=== PATIENT | female | born 1975 | race Caucasian/White ===

== ENCOUNTER → 2016-08-20 | Outpatient (CLI) | payer BC ==
[~2016-08-20] MED LIST: CHOLTAB3 PO; ERGO1CAP35 PO; IBUP600T44 PO; MAGN400T6 PO; POTA20TA16 PO; TIMO0.5S2; [UNRECOGNIZED DRUG - OTHER]
--- NOTE | 2016-08-20 17:04 | DIAGNOSTIC IMAGING REPORT ---
KUB CLINICAL HISTORY: NEPHROLITHIASIS COMPARISON STUDY: CT scan dated 05/21/2012 FINDINGS: There is no pathologic bowel dilatation. No urinary tract calculi are visualized on conventional radiographic imaging. There are scattered nonspecific pelvic basin calcifications, likely representing phleboliths. The renal shadows are partially obscured by overlying bowel gas and fecal material. IMPRESSION: No renal calculi identified, however the renal shadows are partially obscured due to overlying bowel gas and fecal material. Electronically signed by: William Deluca M.D. 08/20/2016 5:03 PM Dictated Date/Time: 08/20/2016 5:02 PM
[2016-08-20 17:19] LABS: BASO % 0.6 %; BASO ABS # 0.05 K/uL (0-0.2); COMPLETE YES; EOS % 1.8 %; HEMATOCRIT 44.9 % (37-47); IG% 0.3 %; LYMPH % 27.6 %; LYMPH ABS # 2.14 K/uL (1.2-3.4); MEAN CELL VOLUME 93.2 fL (80-100); MEAN CORPUSCULAR HEMOGLOBIN 30.7 pg (25-34); MEAN PLATELET VOLUME 11.6 fL (7.4-10.4); MONO % 8.3 %; NEUT % 61.4 %; PLATELET COUNT 239 K/uL (130-400); RED BLOOD COUNT 4.82 M/uL (4.2-5.4); WHITE BLOOD COUNT 7.75 K/uL (4.8-10.8)
[2016-08-20 17:54] LABS: ALT/SGPT 26 U/L (12-78); AST/SGOT 15 U/L (15-37); BLOOD UREA NITROGEN 14 mg/dl (7-18); CALCIUM 8.5 mg/dl (8.5-10.1); CARBON DIOXIDE 29 mmol/L (21-32); CHLORIDE 105 mmol/L (98-107); CREATININE 0.72 mg/dl (0.60-1.20); GLUCOSE 76 mg/dl (70-99); POTASSIUM 3.5 mmol/L (3.5-5.1); SODIUM 141 mmol/L (136-145)
[2016-08-20 17:56] LABS: ALB/GLOB RATIO 1.4 (0.9-2); ALKALINE PHOSPHATASE 54 U/L (45-117)
[2016-08-23 18:34] LABS: IGA SERUM 260 mg/dL (81-463); TIS TRANS IGA 1 U/mL (<4)
== END | disposition home or self-care (01) ==
LOC: C.RAD1850 16:33
PROVIDERS: ATTEND Internal Medicine
DX: N20.0 Calculus of kidney (principal); R14.0 Abdominal distension (gaseous)

== ENCOUNTER → 2016-12-17 | Outpatient (CLI) | payer BC ==
--- NOTE | 2016-12-17 15:29 | MAMMOGRAPHY REPORT ---
BILATERAL DIGITAL SCREENING MAMMOGRAM TOMOSYNTHESIS WITH CAD: 12/17/2016 CLINICAL HISTORY: Routine screening. Patient has no complaints. TECHNIQUE: Breast tomosynthesis in addition to standard 2D mammography was performed. Current study was also evaluated with a Computer Aided Detection (CAD) system. COMPARISON: Comparison is made to exams dated: 12/17/2015 mammogram, 12/12/2014 mammogram, 03/02/2009 ultrasound, and 03/02/2009 mammogram - [facility]. BREAST COMPOSITION: The tissue of both breasts is heterogeneously dense, which may obscure small mas ses. FINDINGS: No suspicious masses, calcifications, or areas of architectural distortion are noted in ei ther breast. There has been no significant interval change compared to prior exams. IMPRESSION: ACR BI-RADS CATEGORY 1: NEGATIVE There is no mammographic evidence of malignancy. A 1 year screening mammogram is recommended. The pa tient will receive written notification of the results. Approximately 10% of breast cancers are not detected with mammography. A negative mammographic report should not delay biopsy if a clinically suggestive mass is present. Halima Griffiths M.D. ah/:12/17/2016 07:59:42 Plastics Bench Mechanic: Karrie ROSARIO(R)(M), [facility] letter sent: Normal 1/2 BI-RADS Code: ACR BI-RADS Category 1: Negative
== END | disposition home or self-care (01) ==
LOC: C.MAMM 07:27
PROVIDERS: ATTEND Internal Medicine
DX: Z12.31 Encounter for screening mammogram for malignant neoplasm of breast (principal)

== ENCOUNTER → 2017-07-17 | Outpatient (CLI) | payer OTHER, BC ==
[~2017-07-17] MED LIST changes: +POTA-639 PO; -POTA20TA16 PO
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
== END | disposition home or self-care (01) ==
LOC: C.RAD1850 09:38
PROVIDERS: ATTEND Physician Assistant
DX: M54.2 Cervicalgia (principal)

== ENCOUNTER 2017-10-18 20:41 | Observation (INO) | payer BC, OTHER ==
[~2017-10-18] VITALS: Ht 170.2 cm; Wt 66.5 kg
[2017-10-18] MEDS ORDERED: ASPIRIN 81 MG CHEW PO STA (21:00)
--- NOTE | 2017-10-18 21:20 | EMERGENCY ROOM VISIT NOTE ---
History Report prepared by Justine: Rudy Stout Under the Supervision of: Dr. Chance Tineo M.D. First contact with patient: 20:47 Chief Complaint: CHEST PAIN Stated Complaint: CHEST PAIN History of Present Illness The patient is a 42 year old female who presents to the Emergency Room with complaints of intermittent left-sided chest pain that began 2 days ago. Patient states the pain radiates to the left-side of her back. She describes the pain as "dull". Patient adds she has been having an intermittent "funky" feeling in her left arm below her elbow. Past medical history includes chronic constipation , Raynaud's disease, Gitelman's syndrome, and glaucoma. Past family history includes PE, CAD, and heart disease. Patient adds she traveled back and forth from [place] over the past couple of days but denies any other recent travels. Patient adds she takes a natural progesterone cream for her history of palpitations 2 days prior to her menstrual periods. Patient states the cream was recommended by Dr. Ferguson. Patient states her last menstrual period was last week. Patient denies taking Aspirin. Patient denies nipple discharge and SOB. Patient adds she is allergic to contrast. Patient is present with her partner. Source of History: patient Onset: 2 days ago Position: chest (left), back Quality: dull Timing: intermittent Modifying Factors (Relieving): other (None) Associated Symptoms: No SOB Note: Negative nipple discharge. Review of Systems See HPI for pertinent positives and negatives. A total of ten systems were reviewed and were otherwise negative. Past Medical & Surgical Medical Problems: (1) Constipation (2) Gitelman syndrome (3) Glaucoma (4) Raynaud's disease Family History FH: CAD (coronary artery disease) FHx: pulmonary embolism Heart disease Social History Smoking Status: Never Smoker Alcohol Use: none Drug Use: none Marital Status: single Occupation Status: employed Current/Historical Medications Scheduled Dorzolamide Hcl-Timolol Maleat (Cosopt Pf), 1 DROP OPB BID Fexofenadine-Pseudoephedrine (Janice-D 24 Hour Allergy), 1 TAB PO DAILY Fluticasone Propionate (Nasal) (Flonase Allergy Relief), 2 SPRAYS BOUBACAR DAILY Scheduled PRN Potassium Ext Rel (Klor-Con), 20 MEQ PO UD PRN for Low Level Allergies Coded Allergies: Iodinated Contrast Media (Verified Allergy, Severe, UNKNOWN, 12/26/13) Aspirin (Verified Allergy, Mild, 12/26/13) Sulfa Drugs (Verified Allergy, Mild, 12/26/13) Opioid Analgesics (Verified Adverse Reaction, Unknown, LOW BP, 12/26/13) Physical Exam Vital Signs Date Time Temp Pulse Resp B/P (MAP) Pulse Ox O2 Delivery O2 Flow Rate FiO2 10/18/17 22:37 85 12 141/76 100 Room Air 10/18/17 21:57 96 22 130/73 99 Room Air 10/18/17 21:35 95 10/18/17 21:33 86 21 131/85 100 Room Air 10/18/17 21:14 98 Room Air 10/18/17 20:55 98 Room Air 10/18/17 20:45 36.9 110 18 164/79 100 Room Air Physical Exam Physical Exam GENERAL: She is oriented to person, place, and time. She appears well- developed and well-nourished. She does not appear distressed. HENT: Exam performed. Head: Normocephalic and atraumatic. Right Ear: External ear normal. No mastoid tenderness. Left Ear: External ear normal. No mastoid tenderness. Mouth/Throat: The oropharynx is clear and moist. No trismus in the jaw. No dental abscesses or uvula swelling. No oropharyngeal exudate or tonsillar abscesses. EYES: Conjunctivae and EOM are normal. Pupils are equal, round, and reactive to light. Right eye exhibits no discharge. Left eye exhibits no discharge. No scleral icterus. NECK: Normal range of motion. Neck supple. No JVD present. No spinous process tenderness present. No carotid bruit present. No rigidity. No tracheal deviation and normal range of motion present. No Brudzinski's sign and no Kernig 's sign noted. CV: Normal rate, regular rhythm, normal heart sounds and intact distal pulses. There is no peripheral edema. Palpable radial pulses bue. PULM/CHEST: Effort normal and breath sounds normal. No respiratory distress. No stridor. She has no wheezes. She has no rales. Chest Wall: She exhibits no tenderness. ABD: The abdomen is soft. Bowel sounds are normal. She has no distension. No mass is present. There is no tenderness. There is no rebound, no guarding, no Ronquillo's sign and no tenderness at McBurney's point. Rovsig negative MUSC/SKEL: Normal range of motion. There is no peripheral edema, tenderness or deformity. LYMPH: No cervical adenopathy. NEURO: She is alert and oriented to person, place, and time. She has normal strength. No cranial nerve deficit or sensory deficit. Coordination and gait normal. GCS eye subscore is 4. GCS verbal subscore is 5. GCS motor subscore is 6. Cerebellar tests wnl. SKIN: Skin is warm and dry. She is not diaphoretic. PSYCH: She has a normal mood and affect. Behavior is normal. Judgment and thought content normal. Medical Decision & Procedures ER Provider Diagnostic Interpretation: Radiology results as stated below per my review and radiologist interpretation: CHEST 2 VIEWS ROUTINE CLINICAL HISTORY: cp dyspnea COMPARISON STUDY: 06/05/2015 FINDINGS: The bones soft tissues and hemidiaphragms are normal. The cardiomediastinal silhouette is normal. The lungs are clear. The pulmonary vasculature is normal. IMPRESSION: Negative chest. The above report was generated using voice recognition software. It may contain grammatical, syntax or spelling errors. Electronically signed by: Danial Steinberg M.D. 10/18/2017 9:35 PM Laboratory Results 10/18/17 21:10 Red Blood Count 4.76, Mean Corpuscular Volume 92.9, Mean Corpuscular Hemoglobin 31.3, Mean Corpuscular Hemoglobin Concent 33.7, Mean Platelet Volume 11.6, Neutrophils (%) (Auto) 43.0, Lymphocytes (%) (Auto) 44.5, Monocytes (%) (Auto) 8.5, Eosinophils (%) (Auto) 2.7, Basophils (%) (Auto) 1.0, Neutrophils # (Auto) 2.90, Lymphocytes # (Auto) 3.00, Monocytes # (Auto) 0.57, Eosinophils # (Auto) 0.18, Basophils # (Auto) 0.07 10/18/17 21:10 Test 10/18/17 21:10 White Blood Count 6.74 K/uL (4.8-10.8) Red Blood Count 4.76 M/uL (4.2-5.4) Hemoglobin 14.9 g/dL (12.0-16.0) Hematocrit 44.2 % (37-47) Mean Corpuscular Volume 92.9 fL (80-100) Mean Corpuscular Hemoglobin 31.3 pg (25-34) Mean Corpuscular Hemoglobin Concent 33.7 g/dl (32-36) Platelet Count 200 K/uL (130-400) Mean Platelet Volume 11.6 fL (7.4-10.4) Neutrophils (%) (Auto) 43.0 % Lymphocytes (%) (Auto) 44.5 % Monocytes (%) (Auto) 8.5 % Eosinophils (%) (Auto) 2.7 % Basophils (%) (Auto) 1.0 % Neutrophils # (Auto) 2.90 K/uL (1.4-6.5) Lymphocytes # (Auto) 3.00 K/uL (1.2-3.4) Monocytes # (Auto) 0.57 K/uL (0.11-0.59) Eosinophils # (Auto) 0.18 K/uL (0-0.5) Basophils # (Auto) 0.07 K/uL (0-0.2) RDW Standard Deviation 42.0 fL (36.4-46.3) RDW Coefficient of Variation 12.5 % (11.5-14.5) Immature Granulocyte % (Auto) 0.3 % Immature Granulocyte # (Auto) 0.02 K/uL (0.00-0.02) D-Dimer < 190 ug/L FEU (0-500) Anion Gap 7.0 mmol/L (3-11) Est Creatinine Clear Calc Drug Dose 89.3 ml/min Estimated GFR () 106.3 Estimated GFR (Non- 91.7 BUN/Creatinine Ratio 20.2 (10-20) Calcium Level 9.2 mg/dl (8.5-10.1) Magnesium Level 2.3 mg/dl (1.8-2.4) Total Bilirubin 0.3 mg/dl (0.2-1) Direct Bilirubin 0.1 mg/dl (0-0.2) Aspartate Amino Transf (AST/SGOT) 21 U/L (15-37) Alanine Aminotransferase (ALT/SGPT) 26 U/L (12-78) Alkaline Phosphatase 67 U/L (45-117) Troponin I < 0.015 ng/ml (0-0.045) Total Protein 8.0 gm/dl (6.4-8.2) Albumin 4.2 gm/dl (3.4-5.0) Laboratory results reviewed by me ECG Per My Interpretation Indication: chest pain Rate (beats per minute): 88 Rhythm: sinus rhythm Findings: other (MS, QRS, QTc are within normal limits; No ST segment elevation /depression) ED Course 2048: The patient was evaluated in room B3B. A complete history and physical exam was performed. 2100: Aspirin 324mg PO 2229: I reevaluated the patient. Patients vital signs are stable. Labs are within normal limits including troponin. CXR is within normal limits. Patient was offered either a 3hr rollout troponin vs inpatient admission to rule out ACS. She decided due to her family history of cardiac problems she wants to stay for admission. Patient and her partner are agreeable to the treatment plan. Patient was admitted to Dr. [place]one[place] [facility] The patient will be evaluated for further management. Medical Decision vital signs are stable. Labs are within normal limits including troponin. CXR is within normal limits. Patient was offered either a 3hr rollout troponin vs inpatient admission to rule out ACS. She decided due to her family history of cardiac problems she wants to stay for admission. Patient and her partner are agreeable to the treatment plan. Patient was admitted to Dr. Quinonez of the [facility] The patient will be evaluated for further management. Medication Reconcilliation Current Medication List: was personally reviewed by me Blood Pressure Screening Patient's blood pressure: Elevated blood pressure Blood pressure disposition: Elevated BP felt to be situational Consults Time Called: 2220 Consulting Physician: Dr. Quinonez - [facility] Returned Call: [phone] Discussed the patient's case. The patient will be evaluated for further treatment and disposition. Impression Primary Impression: Chest pain, unspecified Scribe Attestation The scribe's documentation has been prepared under my direction and personally reviewed by me in its entirety. I confirm that the note above accurately reflects all work, treatment, procedures, and medical decision making performed by me. The chart was completed utilizing PostedIn voice recognition software. Grammatical errors, random word insertions, pronoun errors, and incomplete sentences are an occasional consequence of this system due to software limitations, ambient noise, and hardware issues. Any formal questions or concerns about the content, text, or information contained within the body of this dictation should be directly addressed to the physician for clarification. Departure Information Dispostion Being Evaluated By Hospitalist Referrals RV. Nguyen MD (PCP) Forms Call Back Authorization, HOME CARE DOCUMENTATION FORM, IMPORTANT VISIT INFORMATION Patient Instructions [facility] Health Problem Qualifiers Primary Impression: Chest pain, unspecified Chest pain type: unspecified Qualified Codes: R07.9 - Chest pain, unspecified
[2017-10-18 21:21] LABS: BASO ABS # 0.07 K/uL (0-0.2); EOS % 2.7 %; EOS ABS # 0.18 K/uL (0-0.5); HEMATOCRIT 44.2 % (37-47); HEMOGLOBIN 14.9 g/dL (12.0-16.0); IG# 0.02 K/uL (0.00-0.02); LYMPH % 44.5 %; MEAN CELL VOLUME 92.9 fL (80-100); MEAN CORPUSCULAR HEMOGLOBIN 31.3 pg (25-34); MEAN CORPUSCULAR HGB CONC 33.7 g/dl (32-36); MEAN PLATELET VOLUME 11.6 fL (7.4-10.4); MONO % 8.5 %; MONO ABS # 0.57 K/uL (0.11-0.59); PLATELET COUNT 200 K/uL (130-400); RED CELL DISTRIBUTION WIDTH CV 12.5 % (11.5-14.5); WHITE BLOOD COUNT 6.74 K/uL (4.8-10.8)
[2017-10-18] MEDS ORDERED: FLUT0.15 NAE (21:21)
[2017-10-18] MEDS ORDERED: FEXO1TAB58 PO (21:21)
[2017-10-18] MEDS ORDERED: DORZ1SOL5 OPB (21:21)
--- NOTE | 2017-10-18 21:37 | DIAGNOSTIC IMAGING REPORT ---
CHEST 2 VIEWS ROUTINE CLINICAL HISTORY: cp dyspnea COMPARISON STUDY: 06/05/2015 FINDINGS: The bones soft tissues and hemidiaphragms are normal. The cardiomediastinal silhouette is normal. The lungs are clear. The pulmonary vasculature is normal. IMPRESSION: Negative chest. The above report was generated using voice recognition software. It may contain grammatical, syntax or spelling errors. Electronically signed by: Danial Steinberg M.D. 10/18/2017 9:35 PM Dictated Date/Time: 10/18/2017 9:35 PM
[2017-10-18 21:42] LABS: BLOOD UREA NITROGEN 16 mg/dl (7-18); CALCIUM 9.2 mg/dl (8.5-10.1); CARBON DIOXIDE 28 mmol/L (21-32); CREATININE 0.79 mg/dl (0.60-1.20); GLUCOSE 93 mg/dl (70-99); POTASSIUM 3.2 mmol/L (3.5-5.1); SODIUM 139 mmol/L (136-145)
[2017-10-18 23:42] LABS: ALBUMIN 4.2 gm/dl (3.4-5.0); ALKALINE PHOSPHATASE 67 U/L (45-117); ALT/SGPT 26 U/L (12-78); AST/SGOT 21 U/L (15-37)
[2017-10-19] VITALS (7 sets, daily range): BP systolic 76–136; BP diastolic 66–84; PULSE 74–93; TEMP 36.6–36.9; O2SAT 96–99; Ht 170.2 cm; Wt 66.5 kg
[2017-10-19] MEDS ORDERED: POTASSIUM CHLORIDE 10 MEQ TABCR PO STA (00:10)
[2017-10-19] MEDS ORDERED: SPIRONOLACTONE 25 MG TAB PO STA (00:13)
[2017-10-19] MEDS ORDERED: ACETAMINOPHEN 325 MG TAB PO PRN (00:45)
[2017-10-19] MEDS ORDERED: ONDANSETRON 8MG OD TAB PO PRN (00:45)
--- NOTE | 2017-10-19 00:59 | History and Physical ---
History & Physical Date & Time of Service: Oct 19, 2017 at 00:49 Chief Complaint: Chest Pain Primary Care Physician: RV. Nguyen MD History of Present Illness Source: patient, hospital records The patient is a 42-year-old female with the past medical history including Gittleman's syndrome, who presents to emergency department with 4 episodes of self-limited left parasternal chest discomfort approximately 5-10 minutes duration each. To the episodes occurred when she was lying down for sleep, and the other 2 or with activity. She does have a history of hypokalemia intermittently with Gettleman syndrome, and had at one time been getting her blood test on a regular basis, but at this point reports that she takes potassium just if she feels that she needs it. With her episodes of low potassium in the past she primarily has had symptoms of palpitations and PVCs, but this is the first time she has had actual chest discomfort and no PVCs. She also does report some transient left shoulder and upper arm discomfort on 1 of these occasions. Past Medical/Surgical History Medical Problems: (1) Constipation (2) Gitelman syndrome (3) Glaucoma (4) Hypokalemia, excessive renal losses (5) Raynaud's disease Family History FH: CAD (coronary artery disease) FHx: pulmonary embolism Heart disease Social History Smoking Status: Never Smoker Smokeless Tobacco Use: No Alcohol Use: none Drug Use: none Marital Status: single Housing status: lives alone Occupational Status: employed Immunizations History of Influenza Vaccine: Unknown History of Tetanus Vaccine?: Unknown History of Pneumococcal: No History of Hepatitis B Vaccine: Unknown Allergies Coded Allergies: Iodinated Contrast Media (Verified Allergy, Severe, UNKNOWN, 12/26/13) Aspirin (Verified Allergy, Mild, 12/26/13) Sulfa Drugs (Verified Allergy, Mild, 12/26/13) Opioid Analgesics (Verified Adverse Reaction, Unknown, LOW BP, 12/26/13) Home Medications Scheduled Dorzolamide Hcl-Timolol Maleat (Cosopt Pf), 1 DROP OPB BID Fexofenadine-Pseudoephedrine (Janice-D 24 Hour Allergy), 1 TAB PO DAILY Fluticasone Propionate (Nasal) (Flonase Allergy Relief), 2 SPRAYS BOUBACAR DAILY Scheduled PRN Potassium Ext Rel (Klor-Con), 20 MEQ PO UD PRN for Low Level Review of Systems The patient denies palpitations, shortness of breath, dyspnea on exertion, cough , lower extremity swelling, sore throat, fevers, chills, sweats, weight change, fatigue, nausea, vomiting, diarrhea , constipation, abdominal pain, pelvic pain, blood in urine or stool, dysuria, urinary frequency or urgency, lightheadedness , dizziness, headache, memory loss, loss of consciousness, rash, abnormal bruising or bleeding, imbalance, focal or generalized weakness, numbness or tingling in legs, generalized arthralgias or myalgias, back or neck pain, or night sweats. The review of systems is otherwise negative other than for that already noted above, and at least 10 systems have been reviewed. Physical Exam Vital Signs Date Time Temp Pulse Resp B/P (MAP) Pulse Ox O2 Delivery O2 Flow Rate FiO2 10/19/17 00:05 91 22 131/88 100 Room Air 10/18/17 23:00 80 20 116/74 100 Room Air 10/18/17 22:37 85 12 141/76 100 Room Air 10/18/17 21:57 96 22 130/73 99 Room Air 10/18/17 21:35 95 10/18/17 21:33 86 21 131/85 100 Room Air 10/18/17 21:14 98 Room Air 10/18/17 20:55 98 Room Air 10/18/17 20:45 36.9 110 18 164/79 100 Room Air The patient is awake, alert and oriented 3, well developed and well nourished, normocephalic and atraumatic, lying in bed and in no acute distress. HEENT--PERRL, EOMI, mucous membranes and oropharynx dry. Neck--supple. No JVD. No bruits. Thyroid normal, trachea midline, no adenopathy. Heart--normal S1 and S2. No murmurs, rubs or gallops. Lungs--clear bilaterally, no respiratory distress, no accessory muscle use. Abdomen--normal bowel sounds and soft. Nontender. Nondistended, no hernias or masses, no organomegaly. Extremities--no cyanosis or clubbing. No edema. There are good distal pulses b/ l. Dermatologic--normal skin turgor, normal color, no abnormal lymph nodes, no rash. Neurologic--cranial nerves II through XII grossly intact. Rheumatologic--normal range of motion. Psychiatric--normal affect. Diagnostics Laboratory Results Results Past 24 Hours Test 10/18/17 21:10 Range/Units White Blood Count 6.74 4.8-10.8 K/uL Red Blood Count 4.76 4.2-5.4 M/uL Hemoglobin 14.9 12.0-16.0 g/dL Hematocrit 44.2 37-47 % Mean Corpuscular Volume 92.9 80-100 fL Mean Corpuscular Hemoglobin 31.3 25-34 pg Mean Corpuscular Hemoglobin Concent 33.7 32-36 g/dl Platelet Count 200 130-400 K/uL Mean Platelet Volume 11.6 7.4-10.4 fL Neutrophils (%) (Auto) 43.0 % Lymphocytes (%) (Auto) 44.5 % Monocytes (%) (Auto) 8.5 % Eosinophils (%) (Auto) 2.7 % Basophils (%) (Auto) 1.0 % Neutrophils # (Auto) 2.90 1.4-6.5 K/uL Lymphocytes # (Auto) 3.00 1.2-3.4 K/uL Monocytes # (Auto) 0.57 0.11-0.59 K/uL Eosinophils # (Auto) 0.18 0-0.5 K/uL Basophils # (Auto) 0.07 0-0.2 K/uL RDW Standard Deviation 42.0 36.4-46.3 fL RDW Coefficient of Variation 12.5 11.5-14.5 % Immature Granulocyte % (Auto) 0.3 % Immature Granulocyte # (Auto) 0.02 0.00-0.02 K/uL D-Dimer < 190 0-500 ug/L FEU Sodium Level 139 136-145 mmol/L Potassium Level 3.2 3.5-5.1 mmol/L Chloride Level 105 98-107 mmol/L Carbon Dioxide Level 28 21-32 mmol/L Anion Gap 7.0 3-11 mmol/L Blood Urea Nitrogen 16 7-18 mg/dl Creatinine 0.79 0.60-1.20 mg/dl Est Creatinine Clear Calc Drug Dose 89.3 ml/min Estimated GFR () 106.3 Estimated GFR (Non- 91.7 BUN/Creatinine Ratio 20.2 10-20 Random Glucose 93 70-99 mg/dl Calcium Level 9.2 8.5-10.1 mg/dl Magnesium Level 2.3 1.8-2.4 mg/dl Total Bilirubin 0.3 0.2-1 mg/dl Direct Bilirubin 0.1 0-0.2 mg/dl Aspartate Amino Transf (AST/SGOT) 21 15-37 U/L Alanine Aminotransferase (ALT/SGPT) 26 12-78 U/L Alkaline Phosphatase 67 45-117 U/L Troponin I < 0.015 0-0.045 ng/ml Total Protein 8.0 6.4-8.2 gm/dl Albumin 4.2 3.4-5.0 gm/dl Diagnostic Radiology CHEST 2 VIEWS ROUTINE CLINICAL HISTORY: cp dyspnea COMPARISON STUDY: 06/05/2015 FINDINGS: The bones soft tissues and hemidiaphragms are normal. The cardiomediastinal silhouette is normal. The lungs are clear. The pulmonary vasculature is normal. IMPRESSION: Negative chest. The above report was generated using voice recognition software. It may contain grammatical, syntax or spelling errors. Electronically signed by: Danial Steinberg M.D. 10/18/2017 9:35 PM Dictated Date/Time: 10/18/2017 9:35 PM Impression Assessment and Plan Gittelman's syndrome/hypokalemia/left sided chest pain-- The patient will be admitted to telemetry for serial cardiac enzymes, serial EKG's, cardiac rhythm monitoring and a 2-D echocardiogram with Dopplers. Give Klor-Con 40 mEq p.o. now and spironolactone 25 mg p.o. now. Klor-Con 20 mEq p.o. daily, and so the as needed she is taking it now, and spironolactone 25 mg p.o. every morning. Recheck BMP and magnesium laboratories in a.m. Her initial EKG did show nonspecific inferior lateral changes, that was significantly improved on her second EKG. We will consult cardiology. She should be followed closely on an outpatient basis to manage her potassium and magnesium levels to keep potassium at least 4 and magnesium at least 2. Glaucoma-- Continue Cosopt as per outpatient. Allergic rhinitis-- Continue Flonase allergy relief, hold Janice-D 24 hour Advanced Directives Existing Advance Directive: No Existing Living Will: No Existing Power of Director Of Instruction: No Resuscitation Status VTE Prophylaxis Will order VTE Prophylaxis: Yes Social Service Consult None Apply
[2017-10-19] MEDS ORDERED: IV FLUIDS COMPLETED PRN (01:15)
[2017-10-19 06:14] LABS: BLOOD UREA NITROGEN 10 mg/dl (7-18); CALCIUM 8.2 mg/dl (8.5-10.1); CARBON DIOXIDE 24 mmol/L (21-32); CREATININE 0.65 mg/dl (0.60-1.20); GLUCOSE 107 mg/dl (70-99); SODIUM 142 mmol/L (136-145)
[2017-10-19 06:21] LABS: CKMB < 1.0 ng/ml (0.5-3.6)
[2017-10-19] MEDS ORDERED: FLUTICASONE PROPIONATE NA SPR 16 GM BTL NAE SCH (09:00)
[2017-10-19] MEDS ORDERED: POTASSIUM CHLORIDE 20 MEQ TABCR PO SCH (09:00)
[2017-10-19] MEDS ORDERED: SPIRONOLACTONE 25 MG TAB PO SCH (09:00)
[2017-10-19] MEDS ORDERED: DORZOLAMIDE/TIMOLOL 22.3/6.8MG/ML 10 ML BTL OPB SCH (09:00)
--- NOTE | 2017-10-19 12:43 | Cardiology Consultation ---
Cardiology Consultation Date of Consultation: Oct 19, 2017. Requesting Physician: Dr. Monteiro Reason for Consultation: Chest Pain Pt evaluation today including: conversation w/ patient, conversation w/ family (Her partner), physical exam, lab review, review of studies, review of inpatient medication list History of Present Illness This is a very pleasant 42-year-old woman who has a long history of hypokalemia which has been evaluated extensively in the past. This has been associated with palpitations which she tells me or premature ventricular beats in the past. She has never had significant arrhythmias identified. She presents now with several episodes of chest discomfort which is new for her. She describes having severe substernal, left scapular and left shoulder discomfort occurring 4 times, once Thursday evening, 1 Thursday morning, 1 Thursday evening and then on Thursday evening which prompted her to come into the emergency room. The episodes last about an hour and then resolved. They are not exertional. She is quite active and does not have exertional chest discomfort. She does have a strong family history for heart disease. She also has another symptom which has not been fully evaluated, over the last year she has had perhaps half a dozen episodes which occur at night where she suddenly feels her heart beating rapidly, becomes very diaphoretic and her partner says that she turns escamilla and she feels as though she might pass out. During 1 of these episodes her partner (who is the manager medical I believe) took her blood pressure and heart rate and noted her blood pressure to be elevated and her heart rate to be around 110. These episodes resolve after half an hour to an hour. She has not had them during the day and they have not been associated with chest discomfort. Since admission she has felt well, she has had neither chest discomfort nor palpitations. In the emergency room her electrocardiogram was felt to be somewhat abnormal and she was admitted. Cardiac enzymes so far negative. Past Medical/Surgical History (1) Hypokalemia, excessive renal losses (2) Raynaud's disease (3) Glaucoma Family History FH: CAD (coronary artery disease) FHx: pulmonary embolism Heart disease Social History Smoking Status: Never Smoker History of Alcohol Use: No Review of Systems Constitutional: No fever, No weight loss, No weakness Respiratory: No cough, No wheezing, No shortness of breath, No dyspnea on exertion Cardiac: + see HPI, + chest pain, + palpitations, No orthopnea, No PND, No edema Abdomen: No pain, No nausea, No vomiting, No diarrhea, No GI bleeding Female : No problem reported Neurologic: No paralysis, No weakness, No numbness/tingling, No balance problems Heme: No abnormal bleeding/bruising, No clotting problems Endo: No fatigue Skin: No problem reported All Other Systems: Reviewed and Negative Allergies Coded Allergies: Iodinated Contrast Media (Verified Allergy, Severe, UNKNOWN, 12/26/13) Aspirin (Verified Allergy, Mild, 12/26/13) Sulfa Drugs (Verified Allergy, Mild, 12/26/13) Opioid Analgesics (Verified Adverse Reaction, Unknown, LOW BP, 12/26/13) Medications Current Inpatient Medications Medications (Trade) Dose Ordered Sig/Victorina Route Start Time Stop Time Status Last Admin Dose Admin Acetaminophen (Tylenol Tab) 650 mg Q4H PRN PO 10/19/17 00:45 11/18/17 00:44 Fluticasone Propionate (Flonase Nasal [place]) 2 sprays DAILY BOUBACAR 10/19/17 09:00 11/18/17 08:59 10/19/17 08:51 2 SPRAYS Dorzolamide/ Timolol (Cosopt Op Soln) 1 drops BID OPB 10/19/17 09:00 11/18/17 08:59 10/19/17 07:54 1 DROPS Potassium Chloride (Klor-Con Tab) 20 meq QAM PO 10/19/17 09:00 11/18/17 08:59 10/19/17 07:55 20 MEQ Spironolactone (Aldactone Tab) 25 mg QAM PO 10/19/17 09:00 11/18/17 08:59 10/19/17 07:55 25 MG Ondansetron HCl (Zofran Odt) 8 mg Q6H PRN PO 10/19/17 00:45 11/18/17 00:44 Miscellaneous (Iv Fluids Completed) 1 ea PRN PRN N/A 10/19/17 01:15 10/19/18 01:14 Physical Exam Vital Signs Past 12 Hours Date Time Temp Pulse Resp B/P (MAP) Pulse Ox O2 Delivery O2 Flow Rate FiO2 10/19/17 11:51 36.7 76 18 136/75 (95) 98 10/19/17 08:00 99 Room Air 10/19/17 07:35 36.6 74 20 116/70 (85) 99 Room Air 10/19/17 05:16 36.7 80 18 107/66 (80) 96 Room Air 10/19/17 02:19 36.9 93 16 125/84 98 Room Air 10/19/17 01:04 84 18 134/74 100 Constitutional: General Apperance: heathly-appearing Level of Distress: NAD Psychiatric: Mental Status: active & alert Head: normocephalic Eyes: EOM: EOMI ENMT: normal ENT inspection, hearing grossly normal Neck: supple, no masses Lungs: Respiratory effort: no dyspnea, good air movement Auscultation: breath sounds normal, no wheezing Cardiovascular: Heart Auscultation: RRR, no murmurs, no rubs, no gallops Peripheral Pulses: Bruits: none appreciated Abdomen: Bowel Sounds: normal Inspection & Palpation: soft, no tenderness, guarding & rebound, no masses Musculoskeletal: normal strength (5/5 throughout) Extremities: no edema Neurologic: Cranial Nerves: grossly intact Sensation: grossly intact Data Laboratory Results: Last 24 Hours Test 10/18/17 21:10 10/19/17 05:09 White Blood Count 6.74 K/uL Red Blood Count 4.76 M/uL Hemoglobin 14.9 g/dL Hematocrit 44.2 % Mean Corpuscular Volume 92.9 fL Mean Corpuscular Hemoglobin 31.3 pg Mean Corpuscular Hemoglobin Concent 33.7 g/dl Platelet Count 200 K/uL Mean Platelet Volume 11.6 fL Neutrophils (%) (Auto) 43.0 % Lymphocytes (%) (Auto) 44.5 % Monocytes (%) (Auto) 8.5 % Eosinophils (%) (Auto) 2.7 % Basophils (%) (Auto) 1.0 % Neutrophils # (Auto) 2.90 K/uL Lymphocytes # (Auto) 3.00 K/uL Monocytes # (Auto) 0.57 K/uL Eosinophils # (Auto) 0.18 K/uL Basophils # (Auto) 0.07 K/uL RDW Standard Deviation 42.0 fL RDW Coefficient of Variation 12.5 % Immature Granulocyte % (Auto) 0.3 % Immature Granulocyte # (Auto) 0.02 K/uL D-Dimer < 190 ug/L FEU Sodium Level 139 mmol/L 142 mmol/L Potassium Level 3.2 mmol/L 4.0 mmol/L Chloride Level 105 mmol/L 110 mmol/L Carbon Dioxide Level 28 mmol/L 24 mmol/L Anion Gap 7.0 mmol/L 8.0 mmol/L Blood Urea Nitrogen 16 mg/dl 10 mg/dl Creatinine 0.79 mg/dl 0.65 mg/dl Est Creatinine Clear Calc Drug Dose 89.3 ml/min 108.6 ml/min Estimated GFR () 106.3 126.0 Estimated GFR (Non- 91.7 108.7 BUN/Creatinine Ratio 20.2 15.9 Random Glucose 93 mg/dl 107 mg/dl Calcium Level 9.2 mg/dl 8.2 mg/dl Magnesium Level 2.3 mg/dl 2.1 mg/dl Total Bilirubin 0.3 mg/dl Direct Bilirubin 0.1 mg/dl Aspartate Amino Transf (AST/SGOT) 21 U/L Alanine Aminotransferase (ALT/SGPT) 26 U/L Alkaline Phosphatase 67 U/L Troponin I < 0.015 ng/ml < 0.015 ng/ml Total Protein 8.0 gm/dl Albumin 4.2 gm/dl Total Creatine Kinase 69 U/L Creatine Kinase MB < 1.0 ng/ml Creatine Kinase MB Ratio Imaging: I reviewed her echocardiogram, it has not been officially interpreted as yet. It appears to be normal. EKG: Sinus rhythm, intermittent nonspecific ST-T abnormalities. No acute ischemic changes. Telemetry reviewed: Sinus rhythm with sinus arrhythmia, no significant arrhythmia. Assessment & Plan 1. Chest discomfort: Although worrisome there is no evidence that this is cardiac in etiology. She does not have elevated cardiac enzymes (1 still pending), she does not have ischemic electrocardiographic changes and these are not exertional in nature. I suspect it is noncardiac. We discussed stress testing, I am not inclined to do it. In less some abnormality becomes evident suggesting that she does have coronary artery disease (her echo or her last set of enzymes) then her pretest probability is low enough that the test would not be discriminatory and I would prefer not to do it. If she does have a cardiac abnormality identified that would change things. 2. ECG abnormalities: She does have some minor ECG abnormalities, however these are nonspecific and could be due to hypokalemia, anxiety, etc. In and of themselves I would not pursue it further. 3. Palpitations at night: She has quite significant symptoms by her description during these episodes, they have not been recorded. Although they are relatively infrequent I suspect we would be able to record them, even though her heart rate is not terribly high and her blood pressure is high if anything I think based on the severity of her symptoms it would be worth trying to record. I would probably start with a 30 day event monitor which we can arrange at discharge. Whether we should move onto an implantable monitor or not would require further discussion. She is agreeable to the monitor and I will arrange that. Thank you for allowing me to participate in her care.
--- NOTE | 2017-10-19 14:12 | Discharge Summary ---
Discharge Summary Date of Service Oct 19, 2017. Discharge Summary Admission Date: Oct 19, 2017 at 00:40 Discharge Disposition: Home Principal Diagnosis: Non cardiac chest pain Immunizations: Have You Had Influenza Vaccine: Unknown History of Tetanus Vaccine?: Unknown History of Pneumococcal: No History of Hepatitis B Vaccine: Unknown Medication Reconciliation New Medications: Spironolactone (Spironolactone) 25 Mg Tab 25 MG PO QAM for 30 Days, #30 TAB Continued Medications: Dorzolamide Hcl-Timolol Maleat (Cosopt Pf) 1 Lily Lily 1 DROP OPB BID Fexofenadine-Pseudoephedrine (Janice-D 24 Hour Allergy) 1 Tab Tab 1 TAB PO DAILY, TAB Fluticasone Propionate (Nasal) (Flonase Allergy Relief) 50 Mcg/Act Spr 2 SPRAYS BOUBACAR DAILY Potassium Ext Rel (Klor-Con) 20 Meq Tabcr 20 MEQ PO UD PRN for Low Level Discharge Exam Ros: The patient denies palpitations, shortness of breath, dyspnea on exertion, cough , lower extremity swelling, sore throat, fevers, chills, sweats, weight change, fatigue, nausea, vomiting, diarrhea , constipation, abdominal pain, pelvic pain, blood in urine or stool, dysuria, urinary frequency or urgency, lightheadedness , dizziness, headache, memory loss, loss of consciousness, rash, abnormal bruising or bleeding, imbalance, focal or generalized weakness, numbness or tingling in legs, generalized arthralgias or myalgias, back or neck pain, or night sweats. The review of systems is otherwise negative other than for that already noted above, and at least 10 systems have been reviewed. Physical Exam The patient is awake, alert and oriented 3, well developed and well nourished, normocephalic and atraumatic, lying in bed and in no acute distress. HEENT--PERRL, EOMI, mucous membranes and oropharynx dry. Neck--supple. No JVD. No bruits. Thyroid normal, trachea midline, no adenopathy. Heart--normal S1 and S2. No murmurs, rubs or gallops. Lungs--clear bilaterally, no respiratory distress, no accessory muscle use. Abdomen--normal bowel sounds and soft. Nontender. Nondistended, no hernias or masses, no organomegaly. Extremities--no cyanosis or clubbing. No edema. There are good distal pulses b/ l. Dermatologic--normal skin turgor, normal color, no abnormal lymph nodes, no rash. Neurologic--cranial nerves II through XII grossly intact. Rheumatologic--normal range of motion. Psychiatric--normal affect. Hospital Course HPI: The patient is a 42-year-old female with the past medical history including Gittleman's syndrome, who presents to emergency department with 4 episodes of self-limited left parasternal chest discomfort approximately 5-10 minutes duration each. To the episodes occurred when she was lying down for sleep, and the other 2 or with activity. She does have a history of hypokalemia intermittently with Gettleman syndrome, and had at one time been getting her blood test on a regular basis, but at this point reports that she takes potassium just if she feels that she needs it. With her episodes of low potassium in the past she primarily has had symptoms of palpitations and PVCs, but this is the first time she has had actual chest discomfort and no PVCs. She also does report some transient left shoulder and upper arm discomfort on 1 of these occasions. Patient was admitted for observation and she had negative cardiac markers x3. Discussed with Cardio and it was determined that she was a low pretest probability and it wouldn't be beneficial to do a stress test. Echo was normal. Appreciate Cardio input. 1. Chest discomfort: Although worrisome there is no evidence that this is cardiac in etiology. She does not have elevated cardiac enzymes (1 still pending), she does not have ischemic electrocardiographic changes and these are not exertional in nature. I suspect it is noncardiac. We discussed stress testing, I am not inclined to do it. In less some abnormality becomes evident suggesting that she does have coronary artery disease (her echo or her last set of enzymes) then her pretest probability is low enough that the test would not be discriminatory and I would prefer not to do it. 2. ECG abnormalities: She does have some minor ECG abnormalities, however these are nonspecific and could be due to hypokalemia, anxiety, etc. In and of themselves I would not pursue it further. 3. Palpitations at night: She has quite significant symptoms by her description during these episodes, they have not been recorded. Although they are relatively infrequent I suspect we would be able to record them, even though her heart rate is not terribly high and her blood pressure is high if anything I think based on the severity of her symptoms it would be worth trying to record. I would probably start with a 30 day event monitor which we can arrange at discharge. Whether we should move onto an implantable monitor or not would require further discussion. She is agreeable to the monitor and I will arrange that. 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 Total Time Spent: Greater than 30 minutes This includes examination of the patient, discharge planning, medication reconciliation, and communication with other providers. Discharge Instructions Please refer to the electronic Patient Visit Report (Discharge Instructions) for additional information. Follow-Up F/U with PCP and Cardio within the month. Additional Copies To RV. Nguyen MD
[2017-10-19] MEDS ORDERED: SPIR25TA6 PO (14:25)
--- NOTE | 2017-10-19 14:28 | Discharge Instructions ---
Discharge Instructions Date of Service Oct 19, 2017. Admission Reason for Admission: Chest Pain, Unspecified, Hypokalemia, Excessive Discharge Discharge Diagnosis / Problem: Chest pain/ hypokalemia Discharge Goals Goal(s): Decrease discomfort, Improve function Activity Recommendations Activity Limitations: resume your previous activity . Instructions / Follow-Up Instructions / Follow-Up Recommend followup with PCP in 1-2 weeks Will start spironolactone to help decrease low potassium. Will followup with cardiology as an outpatient and they will set up a 30 day heart monitor to check for palpitations. Current Hospital Diet Patient's current hospital diet: AHA Diet (Heart Healthy) Discharge Diet Recommended Diet: AHA Diet (Heart Healthy) Pending Studies Studies pending at discharge: no Medical Emergencies . Who to Call and When: Medical Emergencies: If at any time you feel your situation is an emergency, please call 911 immediately. . Non-Emergent Contact Non-Emergency issues call your: Primary Care Provider Call Non-Emergent contact if: you have any medication questions . . "Provider Documentation" section prepared by Konstantin Ramos. .
--- NOTE | 2017-10-20 15:28 | ECHOCARDIOGRAM REPORT ---
*NOTICE TO RECEIVING DEMOCRAT AGENCY This information is strictly Confidential and protected under [place] law. [place] law prohibits you from making any further disclosure of this information unless further disclosure is expressly permitted by the written consent of the person to whom it pertains or is authorized by law. A general authorization for the release of medical or other information is not sufficient for this purpose. Hospital accepts no responsibility if the information is made available to any other person, INCLUDING THE PATIENT. Interpretation Summary * Name: TJ FOURNIER Study Date: 10/19/2017 06:48 AM BP: 107/66 mmHg * Patient Location: [facility]\S\[id number]\2 HR: 80 * : 1975 (M/d/yyyy) Gender: Female Height: 67 in * Age: 42 yrs Ethnicity: CA Weight: 149 lb * Ordering Physician: Chris Qunionez * Performed By: Anna Herman RDCS * * Reason For Study: CHEST PAIN * BSA: 1.8 m2 * -- Conclusions -- * 1. Normal LV size and wall thickness. * 2. LVEF 65-70%. No regional wall motion abnormalities. * 3. Normal RV size and function. * 4. No significant valvular pathology. * 5. No prior studies for comparison. Procedure Details * A complete two-dimensional transthoracic echocardiogram was performed (2D, M-mode, Doppler and color flow Doppler). Left Ventricle * The left ventricle is grossly normal size. * There is normal left ventricular wall thickness. * Ejection Fraction = 65-70%. * No regional wall motion abnormalities noted. Right Ventricle * The right ventricle is grossly normal size. * The right ventricular systolic function is normal as assessed by tricuspid annular plane systolic excursion (TAPSE) (normal >1.5 cm). Atria * The left atrial size is normal. * Borderline right atrial enlargement. * No ASD detected; PFO is not assessed. Mitral Valve * The mitral valve is grossly normal. * There is no mitral valve stenosis. * Significant mitral regurgitation is absent. Tricuspid Valve * The tricuspid valve is not well visualized, but is grossly normal. * Significant tricuspid regurgitation is absent. Aortic Valve * The aortic valve opens well. * The aortic valve is trileaflet. * No hemodynamically significant valvular aortic stenosis. * There is no significant aortic regurgitation. Pulmonic Valve * The pulmonary valve is not well seen, but the Doppler examination is normal without significant regurgitation or stenosis. * Pulmonic stenosis is absent. * There is no significant pulmonary regurgitation. Great Vessels * The aortic root and proximal ascending aorta are normal sized. Pericardium/Pleural * There is no pericardial effusion. Great Vessels * Normal inferior vena cava size and collapsability with sniff indicates a normal right atrial pressure of 3 mmHg MMode 2D Measurements and Calculations IVSd 1.0 cm IVSs 1.2 cm LVIDd 4.5 cm LVIDs 2.7 cm LVPWd 0.63 cm LVPWs 1.3 cm IVS/LVPW 1.6 FS 40.4 % EDV(Teich) 90.1 ml ESV(Teich) 25.9 ml EF(Teich) 71.3 % EDV(cubed) 88.2 ml ESV(cubed) 18.7 ml EF(cubed) 78.8 % % IVS thick 22.5 % % LVPW thick 114.8 % LV mass(C)d 115.5 grams LV mass(C)dI 64.7 grams/m\S\2 LV mass(C)s 105.0 grams LV mass(C)sI 58.9 grams/m\S\2 CO(Teich) 4.3 l/min CI(Teich) 2.4 l/min/m\S\2 SV(Teich) 64.2 ml SI(Teich) 36.0 ml/m\S\2 CO(cubed) 4.7 l/min CI(cubed) 2.6 l/min/m\S\2 SV(cubed) 69.5 ml SI(cubed) 38.9 ml/m\S\2 LA dimension 3.0 cm asc Aorta Diam 2.5 cm LVOT diam 1.6 cm LVOT area 2.0 cm\S\2 LVAd ap4 21.2 cm\S\2 LVLd ap4 6.8 cm EDV(MOD-sp4) 53.8 ml LVAs ap4 9.7 cm\S\2 LVLs ap4 5.3 cm ESV(MOD-sp4) 14.2 ml EF(MOD-sp4) 73.6 % LVAd ap2 24.2 cm\S\2 LVLd ap2 7.8 cm EDV(MOD-sp2) 63.0 ml LVAs ap2 9.5 cm\S\2 LVLs ap2 5.1 cm ESV(MOD-sp2) 14.9 ml EF(MOD-sp2) 76.3 % CO(MOD-sp4) 2.7 l/min CI(MOD-sp4) 1.5 l/min/m\S\2 SV(MOD-sp4) 39.6 ml SI(MOD-sp4) 22.2 ml/m\S\2 CO(MOD-sp2) 3.2 l/min CI(MOD-sp2) 1.8 l/min/m\S\2 SV(MOD-sp2) 48.1 ml SI(MOD-sp2) 27.0 ml/m\S\2 Doppler Measurements and Calculations MV E max jim 86.3 cm/sec MV A max jim 49.0 cm/sec MV E/A 1.8 MV dec time 0.26 sec Ao V2 max 183.2 cm/sec Ao max PG 13.4 mmHg Ao max PG (full) 10.0 mmHg SABINA(V,A) 0.98 cm\S\2 SABINA(V,D) 0.98 cm\S\2 LV V1 max PG 3.4 mmHg LV V1 max 92.2 cm/sec PA V2 max 100.4 cm/sec PA max PG 4.0 mmHg
== END 2017-10-19 16:07 | disposition home or self-care (01) ==
LOC: C.EDB 21:08 → C.MED 10-19 00:40 → ENRESERV 10-19 00:51
PROVIDERS: ADMIT Hospitalist; ATTEND Hospitalist
DX: R07.89 Other chest pain (principal); I73.00 Raynaud's syndrome without gangrene; H40.9 Unspecified glaucoma; Z82.49 Family history of ischemic heart disease and other diseases of the circulatory system; Z91.041 Radiographic dye allergy status; Z88.6 Allergy status to analgesic agent; Z88.2 Allergy status to sulfonamides; Z88.5 Allergy status to narcotic agent

== ENCOUNTER → 2017-10-21 | Outpatient (CLI) | payer BC ==
[~2017-10-21] MED LIST changes: -CHOLTAB3 PO; +DORZ1SOL5 OPB; -ERGO1CAP35 PO; +FEXO1TAB58 PO; +FLUT0.15 NAE; -IBUP600T44 PO; -MAGN400T6 PO; +SPIR25TA6 PO; -TIMO0.5S2; -[UNRECOGNIZED DRUG - OTHER]
[2017-10-21 09:49] LABS: ALKALINE PHOSPHATASE 59 U/L (45-117); ALT/SGPT 23 U/L (12-78); AST/SGOT 18 U/L (15-37); BLOOD UREA NITROGEN 12 mg/dl (7-18); CALCIUM 8.8 mg/dl (8.5-10.1); CARBON DIOXIDE 29 mmol/L (21-32); CHOLESTEROL 211 mg/dl (0-200); CREATININE 0.87 mg/dl (0.60-1.20); GLUCOSE 93 mg/dl (70-99); LDL CHOLESTEROL CALCULATED 113 mg/dl; POTASSIUM 3.9 mmol/L (3.5-5.1); SODIUM 140 mmol/L (136-145); TOTAL PROTEIN 7.4 gm/dl (6.4-8.2)
== END | disposition home or self-care (01) ==
LOC: C.LAB1850 08:07
PROVIDERS: ATTEND Internal Medicine
DX: E87.6 Hypokalemia (principal); E55.9 Vitamin D deficiency, unspecified; Z13.220 Encounter for screening for lipoid disorders

== ENCOUNTER → 2017-11-09 | Outpatient (CLI) | payer BC ==
[2017-11-09 18:32] LABS: BLOOD UREA NITROGEN 9 mg/dl (7-18); CALCIUM 8.6 mg/dl (8.5-10.1); CARBON DIOXIDE 28 mmol/L (21-32); CREATININE 0.81 mg/dl (0.60-1.20); GLUCOSE 111 mg/dl (70-99); POTASSIUM 3.6 mmol/L (3.5-5.1); SODIUM 138 mmol/L (136-145)
== END | disposition home or self-care (01) ==
LOC: C.LAB1850 16:26
PROVIDERS: ATTEND Internal Medicine
DX: E87.6 Hypokalemia (principal)

== ENCOUNTER 2024-12-30 11:02 | Observation (INO) ==
--- NOTE | 2024-12-30 11:26 | Emergency Department Note ---
History of Present Illness General Chief complaint: Cardiac Assessment Stated complaint: CHEST TIGHTNESS, SOB Time Seen by Provider: 12/30/24 11:09 History of Present Illness Maximum Pain Intensity: 4 This is a 49-year-old female who presents to the emergency department via private vehicle with complaints of "chest tightness, shortness of breath". The patient notes that she received her Shingrix vaccine this past Thursday. She then felt quite ill later in the day noting racing heart and diffuse body aches. This has essentially persisted but now notes chest pain and today shortness of breath. She notes also some back pain. There is no tearing pain. No pain shooting through the chest into the back. She did note fever on the first day following the vaccine but none since. She notes the breathing is worsening therefore prompting arrival here today. Current discomfort 06/30. No personal history of UT or PE. She does note family history of PE with her father and also now her sister. There is concern for possible underlying clotting disorder in the family. 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 Home Medications Medication Instructions Recorded Confirmed Type dorzolamide-timolol (PF) 2 %-0.5 % 1 drp OPB BID 04/18/18 12/30/24 History eye drops in a dropperette cholecalciferol (vitamin D3) 50 50 mcg PO QAM 11/11/23 12/30/24 History mcg (2,000 unit) capsule fluticasone propionate 50 1 - 2 spray intranasal UD PRN 05/24/24 12/30/24 Rx mcg/actuation nasal Allergy Symptoms #15.8 mL spray,suspension (Allergy Relief (fluticasone)) albuterol sulfate 90 mcg/actuation 2 puff inhalation .COMPLEX PRN 11/02/24 12/30/24 Rx aerosol inhaler shortness of breath or wheezing #8.5 grams potassium chloride 10 mEq 20 meq (2 x 10 mEq) PO TID #180 11/21/24 12/30/24 Rx tablet,extended release (Klor-Con) tabs spironolactone 25 mg tablet 25 mg PO QDL #90 tabs 11/21/24 12/30/24 Rx famotidine 40 mg tablet 40 mg PO DAILY PRN GERD #30 tabs 12/12/24 12/30/24 Rx montelukast 10 mg tablet 10 mg PO QAM #90 tabs 12/19/24 12/30/24 Rx epinephrine 0.3 mg/0.3 mL 0.3 mg (0.3 mL) IM ONCE PRN 12/21/24 12/30/24 Rx injection, auto-injector (EpiPen anaphylaxis #2 ea 2-Garrick) triamcinolone acetonide 0.1 % 1 applic topical BID PRN flare up 12/30/24 12/30/24 History topical cream Allergies Allergy/AdvReac Type Severity Reaction Status Date / Time Iodinated Contrast Media Allergy Severe Anaphylaxis Verified 12/30/24 13:44 shellfish derived Allergy Severe Anaphylaxis Verified 12/30/24 13:44 Sulfa (Sulfonamide Allergy Unknown Gastrointestinal Verified 12/30/24 13:44 Antibiotics) Upset Past Med/Surg History Problem List (Updated 12/30/24 @ 23:01 by Artis Fitzgerald PA-C) Dyspnea (Acute) Chest pain (Acute) RLQ abdominal pain Gitelman syndrome (Acute) Encounter for health maintenance examination Witnessed episode of apnea FH: osteoporosis Upper back pain Neck pain Pineal gland cyst Hypokalemia (Acute) Irregular menstrual cycle Food allergy Allergic rhinitis Allergic reaction to bee sting GERD (gastroesophageal reflux disease) History of kidney surgery Family history of colon cancer Hypoglycemia Osteopenia Medical History Change in bowel habits Tailbone injury Premenopausal menorrhagia Breast pain, left History of vitamin D deficiency Hx of renal calculi Frontal sinus pain Colicky RLQ abdominal pain Acid reflux History of anesthesia reaction pt denies hx anesthesia problem, pt reports with past colonoscopy (with Dr. Chong) - before procedure started her blood pressure crashed, had to do IV Potassium. no problems with the more recent colonoscopies. Family history of reaction to anesthesia MOM, N/V - SLOW TO WAKE UP History of colon polyps Hypokalemia hx Glaucoma Raynaud's disease Constipation chronic Surgical History History of surgery dental implant History of colonoscopy History of esophagogastroduodenoscopy (EGD) History of tooth extraction History of foot surgery benign lesion removed from left foot Hx of eye surgery Had SLT x2 for glaucoma History of ureter stent History of D&C History of ovarian cystectomy Family History Father Diabetes Aortic stenosis Atrial fibrillation CAD (coronary artery disease), squaxin coronary artery Pulmonary embolism Glaucoma Hypertension Mother Carotid artery stenosis Aortic stenosis CAD (coronary artery disease), squaxin coronary artery Stroke Family history of reaction to anesthesia Family hx colonic polyps Sister Glaucoma Hypertension Family hx colonic polyps Brother Hypertension Family hx colonic polyps Grandfather (Maternal) Family hx of colon cancer Colorectal cancer Grandfather (Paternal) Family hx of colon cancer Colorectal cancer Grandmother (Paternal) Family hx of colon cancer Colorectal cancer Grandmother (Maternal) Family hx of colon cancer Colorectal cancer Uncle Family hx of colon cancer Aunt Breast cancer Family/Other Breast cancer Family/Other Colorectal cancer Other Renal cancer Denies family history of Ovarian cancer Prostate cancer Myocardial infarction Uterine cancer Social History Smoking Status: Former smoker Tobacco Type: Cigarettes Age Started Using Tobacco: 19; Age Quit Using Tobacco: 34; packs per day: 0.5; Second Hand Exposure: No; Do You Dip or Chew Tobacco: No; Hx Alcohol Use: Yes Alcohol type: wine Hx Substance Use: No Preferred Language: Zambian Communication Ability: Effective Visual Impairment: No Limitations Hearing Ability: Normal Pit Slagman Required: No Beliefs That Will Affect Care: None marital status: Single Current Living Situation: Other Current Living Situation Comment: lives with friend current occupational status: employed current occupation: Works for the [employer] Other Information That Helps Us Care for You: No Feels Safe at Home: Yes Safety Concerns: Feels Safe At This Time Childhood Exposure to Second-Hand Smoke: No Dental Care, Regularly: Yes Seatbelt Use: always Sunscreen Use: Yes Assistive Devices: Contacts and Glasses Review of Systems A total of 10 systems reviewed and were otherwise negative Physical Exam Vital Signs Vital Signs - 24 hr 12/30/24 11:04 12/30/24 11:28 12/30/24 13:48 Temperature 36.8 C Temperature Source Temporal Artery Scan Pulse Rate 93 H Pulse Rate [Right Finger] 82 Respiratory Rate 20 16 Respiratory Effort / Characteristics Non-Labored Spontaneous Short of Breath Non-Labored Respiratory Depth Normal Normal Normal Respiratory Pattern Regular Blood Pressure 145/93 H Blood Pressure [Right Arm] 124/77 Blood Pressure Mean 110 Blood Pressure Mean [Right Arm] 92 Blood Pressure Position Lying Pulse Oximetry 100 98 Oxygen Delivery Method Room Air Room Air Sepsis Recent Fever Within 48 Hours No Sepsis New/Unexplained Change in Mental Status No Sepsis Action Taken by Nursing No Action Required 12/30/24 13:48 Temperature Temperature Source Pulse Rate Pulse Rate [Right Finger] Respiratory Rate Respiratory Effort / Characteristics Respiratory Depth Respiratory Pattern Blood Pressure Blood Pressure [Right Arm] Blood Pressure Mean Blood Pressure Mean [Right Arm] Blood Pressure Position Pulse Oximetry Oxygen Delivery Method Room Air Sepsis Recent Fever Within 48 Hours Sepsis New/Unexplained Change in Mental Status Sepsis Action Taken by Nursing VITAL SIGNS - Vital signs and nursing notes were reviewed. Stable and afebrile. GENERAL -49-year-old female appearing her stated age who is in no acute distress. Communicates well with provider and answers questions appropriately. SKIN - Without rashes. No meningeal or petechial rash. HEAD - NC/AT. EYES - PERRL with EOMI bilaterally. Sclera anicteric. EARS - No deformities of external structures noted on gross examination bilaterally. NOSE - Midline and without cyanosis. No epistaxis or purulent drainage noted. MOUTH/OROPHARYNX - Without perioral cyanosis. NECK - Neck with FROM. No nuchal rigidity. LUNGS - CTA CARDIAC - RRR ABDOMEN - Abdominal contour normal without pulsations or visible masses. BS normoactive all four quadrants. No tenderness, palpable masses, hepatosplenomegaly, or ascites noted. EXTREMITIES - No clubbing or peripheral cyanosis. +5/5 strength noted in UE/LE bilaterally. NEUROLOGIC - Cranial nerves II through XII grossly intact. PSYCH -alert, oriented and pleasant on exam. Course Administered Medications Acetaminophen (Acetaminophen 325 Mg Tab) 650 mg PO Q4H PRN PRN Reason: Pain or Fever Stop: 01/29/25 14:06 Last Admin: 12/30/24 20:50 Dose: 650 mg Documented By: MG Dorzolamide/Timolol (Dorzolamide/Timolol 22.3/6.8mg/Ml 10 Ml Btl) 1 drops OPB BID SERINA Stop: 01/29/25 20:59 Last Admin: 12/30/24 19:32 Dose: 1 drops Documented By: Admin: 12/30/24 19:31 Dose: 1 drops Documented By: MG Discontinued Medications Potassium Chloride (K King / Wtr) 10 meq in 100 mls @ 100 mls/hr IV ONE ONE Stop: 12/30/24 13:38 Last Infusion: 12/30/24 14:27 Dose: Infused Documented By: Admin: 12/30/24 12:55 Dose: 100 mls/hr Documented By: DEEPTI Potassium Chloride (Potassium Chloride Crtab 20 Meq Tabcr) 20 meq PO NOW STA Stop: 12/30/24 12:40 Last Admin: 12/30/24 13:00 Dose: 10 meq Documented By: DEEPTI Potassium Chloride (Potassium Chloride 10 Meq Tabcr) Confirm Administered Dose 10 meq PO .STK-MED ONE Stop: 12/30/24 12:59 Last Admin: 12/30/24 13:03 Dose: Not Given Documented By: DEEPTI Potassium Chloride (Potassium Chloride Crtab 20 Meq Tabcr) 20 meq PO NOW STA Stop: 12/30/24 14:12 Last Admin: 12/30/24 14:37 Dose: 20 meq Documented By: MMG Potassium Chloride (Potassium Chloride Crtab 20 Meq Tabcr) 20 meq PO 1800 ONE Stop: 12/30/24 18:01 Last Admin: 12/30/24 17:45 Dose: 20 meq Documented By: AAKASH Medical Decision Making Laboratory Data 12/30/24 11:37 12/30/24 19:44 Lab Results 12/30/24 Range/Units 11:37 WBC 7.40 (4.8-10.8) K/ul RBC 5.03 (4.20-5.40) M/uL Hgb 15.4 (12.0-16.0) g/dl Hct 47.1 H (37.0-47.0) % MCV 93.6 (80.0-100.0) fL MCH 30.6 (25.0-34.0) pg MCHC 32.7 (32.0-36.0) g/dL RDW Std Deviation 43.0 (36.4-46.3) fL RDW Coeff of Fareed 12.4 (11.5-14.5) % Plt Count 224 (130-400) K/uL MPV 11.3 (9.4-12.4) fL Immature Gran % (Auto) 0.1 % Neut % (Auto) 60.9 % Lymph % (Auto) 25.4 % Wise % (Auto) 10.4 % Eos % (Auto) 2.3 % Baso % (Auto) 0.9 % Neut # (Auto) 4.50 (1.40-6.50) K/uL Lymph # (Auto) 1.88 (1.20-3.40) K/uL Wise # (Auto) 0.77 H (0.11-0.59) K/uL Eos # (Auto) 0.17 (0.00-0.50) K/uL Baso # (Auto) 0.07 (0.00-0.20) K/uL Immature Gran # (Auto) 0.01 (0.01-0.20) K/uL PT 10.5 (9.0-12.0) Seconds INR 1.0 (0.9-1.1) APTT 30 (21-31) Seconds PTT Ratio 1.1 D-Dimer < 190 (0-500) ug/L FEU Sodium 139 (136-145) mmol/L Potassium 3.4 L (3.5-5.1) mmol/L Chloride 103 (98-107) mmol/L Carbon Dioxide 29 (21-32) mmol/L Anion Gap 7 (3-11) BUN 9 (6-23) mg/dl Creatinine 0.63 (0.6-1.2) mg/dl Est Cr Clr Drug Dosing 103.9 ml/min eGFR 108.01 BUN/Creatinine Ratio 14.3 (10-20) Glucose 97 (70-99(Fasting)) mg/dl Calcium 9.3 (8.6-10.3) mg/dl Magnesium 2.2 (1.7-2.4) mg/dl Total Bilirubin 0.5 (0.2-1.0) mg/dl AST 19 (13-39) U/L ALT 13 (7-52) U/L Alkaline Phosphatase 59 (34-104) U/L Troponin I High Sens 3.8 (0-14) pg/ml Total Protein 7.7 (6.0-8.3) gm/dl Albumin 4.3 (3.4-5.0) gm/dl Globulin 3.4 (2.5-4.0) gm/dl Albumin/Globulin Ratio 1.3 (0.9-2) TSH 1.667 (0.300-4.500) uIu/ml HCG, Qual Negative (Negative) Urine Color Yellow Urine Appearance Clear (Clear) Urine pH 6.5 (4.5-7.5) Ur Specific [place] 1.009 (1.000-1.030) Urine Protein Negative (Negative) Urine Glucose (UA) Negative (Negative) Urine Ketones Negative (Negative) Urine Blood 3+ H (Negative) Urine Nitrite Negative (Negative) Urine Bilirubin Negative (Negative) Urine Urobilinogen Negative (Negative) Ur Leukocyte Esterase Negative (Negative) Urine WBC (Auto) 0-5 (0-5) /hpf Urine RBC (Auto) >20 H (0-2) /hpf U Hyaline Cast (Auto) 0-2 (0-2) /lpf U Epithel Cells (Auto) 0-2 (0-2) /hpf Urine Bacteria (Auto) None Seen (None Seen) Urine Comment Lyme Disease Screen Negative (Negative) Imaging Data Radiologist's Impression: Chest X-Ray 12/30/24 11:22 XR chest 2V PA/lateral CLINICAL HISTORY: chest pain, dyspnea COMPARISON STUDY: 05/25/2019 FINDINGS: Heart size and pulmonary vasculature are normal. Stable hyperexpanded lungs. No consolidation or pleural effusion. No pneumothorax. IMPRESSION: No acute findings. ACT 112: Negative or not required by law. Electronically signed by: Jim Whitten M.D. 12/30/2024 12:06 PM MDM Narrative Patient was seen and evaluated as above in room D06. Review was performed of nursing notes and vital signs. I did review pertinent previous visits and patient history. After obtaining a thorough history and physical examination the above work up was performed. Patient presents to us today for the above symptoms. She has chest pain or shortness of breath. This began following the Shingrix vaccine this past Thursday. Vital signs are stable. She is clinically well-appearing and nontoxic. EKG per my interpretation reveals normal sinus rhythm at rate of 84 bpm. QTc 423. QRS 88. No ST elevation on this rhythm tracing. Options of care were discussed with the patient. IV access was established. Labs were drawn. Utilizing the PERC rule for pulmonary embolism, the patient unfortunately does not fit criteria as she is at the age of 49 therefore PERC rule cannot be used to rule out PE in this patient. A D-dimer was added. This returned negative and within normal range making PE less likely. No emergent metabolic disturbance. Troponin within normal range. TSH was euthyroid state. hCG negative. Urinalysis without findings to suggest UTI. Lyme screen negative. Chest x-ray negative for acute process. Will note hypokalemia with potassium of 3.4. Patient does note that this is extremely low for her and often is admitted at a level similar to this. She notes that she was in the ICU previously with a potassium of 3.2. She notes that generally the goal is potassium above 4/4.5. She already had 20 mEq of potassium chloride today. I did order additional supplementation here. I discussed further options with the patient. At this time noting the patient's history of Gitelman syndrome with suspected symptomatic hypokalemia today, with the chest pain and dyspnea I do believe that further evaluation and management in the inpatient setting is warranted. Patient in agreement with this plan. Case discussed with the hospitalist service. Please refer to further documentation regarding her stay. GCS: 15 In the evaluation and treatment of this patient the following differential diagnoses were entertained: UT, PE, pericarditis, costochondritis, electrolyte disturbance, vaccine reaction, among others Impression & Plan Hypokalemia, Gitelman syndrome, Chest pain, Dyspnea Discharge Plan Visit Data Chief Complaint: Cardiac Assessment Stated Complaint: CHEST TIGHTNESS, SOB ED Provider: Luz Elliott ED Midlevel Provider: Artis Fitzgerald Discharge Problem: Hypokalemia, Gitelman syndrome, Chest pain, Dyspnea Patient Disposition: Admitted As Inpatient Condition: Good Discharge Instructions Interventions: ED Discharge Assessment Last Done: 12/30/24 15:49
[2024-12-30 11:51] LABS: Hematocrit (blood only) 47.1 % (37.0-47.0); Hemoglobin 15.4 g/dl (12.0-16.0); Immature Granulocytes # (auto) 0.01 K/uL (0.01-0.20); Immature Granulocytes % (auto) 0.1 %; Mean Corpuscular Hemoglobin 30.6 pg (25.0-34.0); Mean Corpuscular Volume 93.6 fL (80.0-100.0); Platelet Count 224 K/uL (130-400); RDW Standard Deviation 43.0 fL (36.4-46.3); Red Blood Count 5.03 M/uL (4.20-5.40); White Blood Count 7.40 K/ul (4.8-10.8)
[2024-12-30 11:52] LABS: Appearance Urine Clear (Clear); Bacteria Urine Automated None Seen (None Seen); Cast Urine Automated 0-2 /lpf (0-2); Epithelial Cell Urine Auto 0-2 /hpf (0-2); Glucose Urine UA Negative (Negative); RBC Urine Automated >20 /hpf (0-2); WBC Urine Automated 0-5 /hpf (0-5)
[2024-12-30 12:08] LABS: Pregnancy Test, Serum Negative (Negative)
--- NOTE | 2024-12-30 12:08 | XRay Report ---
XR chest 2V PA/lateral CLINICAL HISTORY: chest pain, dyspnea COMPARISON STUDY: 05/25/2019 FINDINGS: Heart size and pulmonary vasculature are normal. Stable hyperexpanded lungs. No consolidati on or pleural effusion. No pneumothorax. IMPRESSION: No acute findings. ACT 112: Negative or not required by law. Electronically signed by: Jim Whitten M.D. 12/30/2024 12:06 PM
[2024-12-30 12:20] LABS: Alanine Aminotransferase 13.0 U/L (7-52); Albumin Globulin Ratio 1.3 (0.9-2); Albumin Level 4.3 gm/dl (3.4-5.0); Alkaline Phosphatase 59.0 U/L (34-104); Anion Gap 7.0 (3-11); Bilirubin,Total 0.5 mg/dl (0.2-1.0); Blood Urea Nitrogen 9.0 mg/dl (6-23); Calcium 9.3 mg/dl (8.6-10.3); Carbon Dioxide 29.0 mmol/L (21-32); Chloride 103.0 mmol/L (98-107); Creatinine Clr Calc Pharmacy 103.9 ml/min; Globulin 3.4 gm/dl (2.5-4.0); Glucose 97.0 mg/dl (70-99(Fasting)); Magnesium 2.2 mg/dl (1.7-2.4); Potassium 3.4 mmol/L (3.5-5.1); Sodium 139.0 mmol/L (136-145); Total Protein 7.7 gm/dl (6.0-8.3)
[2024-12-30 12:31] LABS: Thyroid Stimulating Hormone 1.667 uIu/ml (0.300-4.500)
[2024-12-30 12:36] LABS: INR 1.0 (0.9-1.1); Partial Thromboplastin Time 30 Seconds (21-31); Prothrombin Time 10.5 Seconds (9.0-12.0)
[2024-12-30] MEDS: POTASSIUM CHLORIDE / WTR 10 MEQ/100 ML PLCT IV ONE (12:55)
[2024-12-30] MEDS: POTASSIUM CHLORIDE CRTAB 20 MEQ TABCR PO STA ×2 (13:00→14:26)
[2024-12-30] MEDS: POTASSIUM CHLORIDE 10 MEQ TABCR PO ONE (13:03)
--- NOTE | 2024-12-30 13:41 | Electrocardiogram Report ---
Test Reason : Blood Pressure : */* mmHG Vent. Rate : 84 BPM Atrial Rate : 84 BPM P-R Int : 138 ms QRS Dur : 88 ms QT Int : 358 ms P-R-T Axes : 73 71 16 degrees QTcB Int : 423 ms Normal sinus rhythm Nonspecific ST abnormality Abnormal ECG When compared with ECG of 21-Apr-2018 07:53, No significant change was found Confirmed by Ceasar Carlos ([id number]) on 12/30/2024 1:41:21 PM Referred By: Confirmed By: Ceasar Carlos
[2024-12-30] MEDS ORDERED: POLYETHYLENE (MIRALAX) 17 GM PACK PO PRN (14:07)
[2024-12-30] MEDS ORDERED: ONDANSETRON INJ 2 MG/ML 2 ML VIAL IV PRN (14:07)
--- NOTE | 2024-12-30 14:29 | History & Physical Report ---
"Date of Service December 30, 2024 Assessment & Plan (1) Chest pain: (2) Gitelman syndrome: (3) Hypokalemia: Plan This is a 49 year old female with past medical history of Gitelman syndrome, allergic rhinitis, GERD who presented to the ED on 12/30/2024 for chest pain and shortness of breath. While in the ED, her CXR was negative. Troponin & D-dimer both negative. Mag stable at 2.2. CBC stable. K low at 3.4. She received additional 20meq oral and 10meq IV of KCl while in the ED which puts her daily total thus far at 50meq. Her TSH was WNL and her Lyme testing was negative. EKG w/ normal sinus rhythm w/ no signs of ischemia. #Chest pain Likely secondary to hypokalemia as patient has hx of Gitelman syndrome EKG w/o signs of ischemia Troponin & D-Dimer both negative. Lyme testing negative. TSH WNL. Obtain echocardiogram (previous echo was stress echo 03/2018 which was normal) Replace KCl as needed. Monitor on telemetry #Gitelman syndrome | Hypokalemia K low at 3.4, Mag stable at 2.2 on admission. Goal for potassium is 4 and above. Home regimen: 20meq KCl BID + Aldactone 25mg daily. PRN 20meq KCl used when diarrhea occurs. Has received 50meq KCl thus far --> additional 20meq BID ordered to make total 90meq Plan to re-start 20meq KCl BID dosing 12/31, replete with additional as necessary Has not followed w/ Dr. Young in awhile, cannot find note in our current system --> recommend re-establishing with him on discharge which patient is agreeable to. AM BMP + Mag. #Allergic rhinitis - montelukast #GERD - Pepcid prn #Osteopenia - Vitamin D supplement DVT prophylaxis: SCD's Code: full Disposition: anticipate discharge home 12/31 after potassium has been replaced. Case was discussed with Dr. Townsend at time of admission. History of Present Illness Primary Care Provider: Ruslan Rubi MD This is a 49 year old female with past medical history of Gitelman syndrome, allergic rhinitis, GERD who presented to the ED on 12/30/2024 for chest pain and shortness of breath. Spencer was seen & examined this afternoon. She states that she received the Shingrix vaccination on 12/26. Following this she experienced muscle aches, abdominal pain, and chest pain. She reports the chest pain has persisted over the last several days and she also experienced shortness of breath secondary to chest pain. She states she has had chest pain in the past when her K is low. She states that her goal is to have her K above 4. She states she took 20meq KCl this morning. She states that she typically takes 20meq BID and will take an additional dose if she experiences diarrhea. She also uses aldactone 25mg daily as well but does note she missed a dose this week. She states that she previously followed with Dr. Young but has not seen him in some time. States she does feel improvement after an additional dose of KCl but is still having chest pain. She also reports muscle spasms over the last few days as well. Her PCP had recommended she report to the ED. She denies N/V or urinary symptoms. While in the ED, her CXR was negative. Troponin & D-dimer both negative. Mag stable at 2.2. CBC stable. K low at 3.4. She received additional 20meq oral and 10meq IV of KCl while in the ED which puts her daily total thus far at 50meq. Her TSH was WNL and her Lyme testing was negative. EKG w/ normal sinus rhythm w/ no signs of ischemia. Allergies Allergy/AdvReac Type Severity Reaction Status Date / Time Iodinated Contrast Media Allergy Severe Anaphylaxis Verified 12/30/24 13:44 shellfish derived Allergy Severe Anaphylaxis Verified 12/30/24 13:44 Sulfa (Sulfonamide Allergy Unknown Gastrointestinal Verified 12/30/24 13:44 Antibiotics) Upset Home Medications Medication Instructions Recorded Confirmed Type dorzolamide-timolol (PF) 2 %-0.5 % 1 drp OPB BID 04/18/18 12/30/24 History eye drops in a dropperette cholecalciferol (vitamin D3) 50 50 mcg PO QAM 11/11/23 12/30/24 History mcg (2,000 unit) capsule fluticasone propionate 50 1 - 2 spray intranasal UD PRN 05/24/24 12/30/24 Rx mcg/actuation nasal Allergy Symptoms #15.8 mL spray,suspension (Allergy Relief (fluticasone)) albuterol sulfate 90 mcg/actuation 2 puff inhalation .COMPLEX PRN 11/02/24 12/30/24 Rx aerosol inhaler shortness of breath or wheezing #8.5 grams potassium chloride 10 mEq 20 meq (2 x 10 mEq) PO TID #180 11/21/24 12/30/24 Rx tablet,extended release (Klor-Con) tabs spironolactone 25 mg tablet 25 mg PO QDL #90 tabs 11/21/24 12/30/24 Rx famotidine 40 mg tablet 40 mg PO DAILY PRN GERD #30 tabs 12/12/24 12/30/24 Rx montelukast 10 mg tablet 10 mg PO QAM #90 tabs 12/19/24 12/30/24 Rx epinephrine 0.3 mg/0.3 mL 0.3 mg (0.3 mL) IM ONCE PRN 12/21/24 12/30/24 Rx injection, auto-injector (EpiPen anaphylaxis #2 ea 2-Garrick) triamcinolone acetonide 0.1 % 1 applic topical BID PRN flare up 12/30/24 12/30/24 History topical cream Past Med/Surg History Problem List RLQ abdominal pain Gitelman syndrome Encounter for health maintenance examination Witnessed episode of apnea FH: osteoporosis Upper back pain Neck pain Pineal gland cyst Hypokalemia Irregular menstrual cycle Food allergy Allergic rhinitis Allergic reaction to bee sting GERD (gastroesophageal reflux disease) History of kidney surgery Family history of colon cancer Hypoglycemia Osteopenia Medical History Change in bowel habits Tailbone injury Premenopausal menorrhagia Breast pain, left History of vitamin D deficiency Hx of renal calculi Frontal sinus pain Colicky RLQ abdominal pain Acid reflux History of anesthesia reaction pt denies hx anesthesia problem, pt reports with past colonoscopy (with Dr. Chong) - before procedure started her blood pressure crashed, had to do IV Potassium. no problems with the more recent colonoscopies. Family history of reaction to anesthesia MOM, N/V - SLOW TO WAKE UP History of colon polyps Hypokalemia hx Glaucoma Raynaud's disease Constipation chronic Surgical History History of surgery dental implant History of colonoscopy History of esophagogastroduodenoscopy (EGD) History of tooth extraction History of foot surgery benign lesion removed from left foot Hx of eye surgery Had SLT x2 for glaucoma History of ureter stent History of D&C History of ovarian cystectomy Family History Father Diabetes Aortic stenosis Atrial fibrillation CAD (coronary artery disease), [place] coronary artery Pulmonary embolism Glaucoma Hypertension Mother Carotid artery stenosis Aortic stenosis CAD (coronary artery disease), [place] coronary artery Stroke Family history of reaction to anesthesia Family hx colonic polyps Sister Glaucoma Hypertension Family hx colonic polyps Brother Hypertension Family hx colonic polyps Grandfather (Maternal) Family hx of colon cancer Colorectal cancer Grandfather (Paternal) Family hx of colon cancer Colorectal cancer Grandmother (Paternal) Family hx of colon cancer Colorectal cancer Grandmother (Maternal) Family hx of colon cancer Colorectal cancer Uncle Family hx of colon cancer Aunt Breast cancer Family/Other Breast cancer Family/Other Colorectal cancer Other Renal cancer Denies family history of Ovarian cancer Prostate cancer Myocardial infarction Uterine cancer Social History Smoking Status: Former smoker Tobacco Type: Cigarettes Age Started Using Tobacco: 19; Age Quit Using Tobacco: 34; packs per day: 0.5; Second Hand Exposure: No; Do You Dip or Chew Tobacco: No; Hx Alcohol Use: Yes Alcohol type: wine Hx Substance Use: No Preferred Language: Luxembourger Communication Ability: Effective Visual Impairment: No Limitations Hearing Ability: Normal Ripper Operator Required: No Beliefs That Will Affect Care: None marital status: Single Current Living Situation: Other Current Living Situation Comment: lives with friend current occupational status: employed current occupation: Works for the [employer] Other Information That Helps Us Care for You: No Feels Safe at Home: Yes Safety Concerns: Feels Safe At This Time Childhood Exposure to Second-Hand Smoke: No Dental Care, Regularly: Yes Seatbelt Use: always Sunscreen Use: Yes Assistive Devices: Contacts and Glasses Physical Exam Physical Exam: General: NAD, VS: BP 124/77, P82, R16, T36.8C Resp: normal respiratory effort, lungs clear to auscultation CV: RRR, no murmur Abd: normal bowel sounds, non tender, soft Extremities: Moves all extremities, no edema Neuro: A&O x3 Skin: intact, no lesions noted Results & Data Results & Data Vital Signs (Past 12 Hours) Vital Signs Temp Pulse Pulse Resp BP BP Pulse Ox 12/30/24 13:48 12/30/24 13:48 82 16 124/77 98 12/30/24 11:04 36.8 C 93 H 20 145/93 H 100 O2 Del Method 12/30/24 13:48 Room Air 12/30/24 13:48 Room Air 12/30/24 11:04 Room Air Supervising Physician Co-Signing Physician Notes I personally examined the patient and verified all martinez points of history and exam, discussed case, and agree with decision making with Erik Barrera PA-C Feeling dramatically better by the time I see her. Chest pain/tightness and breathing almost entirely back to normal. Vitals noted, in general she is awake and alert pleasant no distress. HEENT normocephalic atraumatic mucous membranes moist. Breathing unlabored no accessory muscle use good effort. Skin without rashes pallor or icterus. Neuro without focal deficits. Chest pain/dyspneasuspect she had a appropriate immune response to the Shingrix vaccine, but then probably this cascaded metabolic disarray with her Gettleman's syndrome, and then she does seem to get quite symptomatic with any hypokalemia. Improved. Monitor into tomorrow, home as long as she is continuing to look and feel well. PG Care Time/CCT Total # of Minutes Spent Total Time Spent with Patient: Total time spent is greater than 50% in coordination of care (as documented) at patient's floor/unit and/or counseling patient: Coding Level of Care Code 66560 INT INP/OBS CARE 3/75MIN Diagnoses Chest pain R07.89; R07.8 Chest pain type: other chest pain Gitelman syndrome E83.42; E87.6 Hypokalemia E87.6 (1) Chest pain Chest pain type: other chest pain Qualified Code(s): R07.89 - Other chest pain; R07.8 - Other chest pain"
[2024-12-30] MEDS ORDERED: FAMOTIDINE 40 MG TABLET PO PRN (16:18)
[2024-12-30] MEDS: POTASSIUM CHLORIDE CRTAB 20 MEQ TABCR PO ONE (17:45)
--- NOTE | 2024-12-30 18:12 | XCELERA ---
[id number] \\[id number]
[2024-12-30] MEDS: DORZOLAMIDE/TIMOLOL 22.3/6.8MG/ML 10 ML BTL OPB SCH (19:31)
[2024-12-30 20:40] LABS: Anion Gap 5.0 (3-11); Blood Urea Nitrogen 11.0 mg/dl (6-23); Calcium 8.7 mg/dl (8.6-10.3); Carbon Dioxide 25.0 mmol/L (21-32); Chloride 108.0 mmol/L (98-107); Creatinine Clr Calc Pharmacy 68.2 ml/min; Glucose 86.0 mg/dl (70-99(Fasting)); Magnesium 2.1 mg/dl (1.7-2.4); Potassium 4.1 mmol/L (3.5-5.1); Sodium 138.0 mmol/L (136-145)
[2024-12-30] MEDS: ACETAMINOPHEN 325 MG TAB PO PRN (20:50)
[2024-12-31 06:21] LABS: Anion Gap 7.0 (3-11); Blood Urea Nitrogen 10.0 mg/dl (6-23); Calcium 8.5 mg/dl (8.6-10.3); Carbon Dioxide 24.0 mmol/L (21-32); Chloride 107.0 mmol/L (98-107); Creatinine Clr Calc Pharmacy 107.3 ml/min; Glucose 91.0 mg/dl (70-99(Fasting)); Magnesium 2.0 mg/dl (1.7-2.4); Potassium 3.7 mmol/L (3.5-5.1); Sodium 138.0 mmol/L (136-145)
[2024-12-31] MEDS: POTASSIUM CHLORIDE 10 MEQ TABCR PO SCH (08:03)
[2024-12-31] MEDS: CHOLECALCIFEROL 25 MCG (1000 UNITS) TAB PO SCH (08:03)
[2024-12-31] MEDS: MONTELUKAST SODIUM 10 MG TABLET PO SCH (08:03)
[2024-12-31 08:41] VITALS: RESP 17
--- NOTE | 2024-12-31 11:15 | Discharge Summary ---
Discharge Summary Date of Service December 31, 2024 Principal Dx & Hospital Course #1 = Principal Diagnosis (1) Chest pain: (2) Gitelman syndrome: (3) Hypokalemia: Plan This is a 49 year old female with past medical history of Gitelman syndrome, allergic rhinitis, GERD who presented to the ED on 12/30/2024 for chest pain and shortness of breath. While in the ED, her CXR was negative. Troponin & D-dimer both negative. Mag sta ble at 2.2. CBC stable. K low at 3.4. She received additional 20meq oral and 10meq IV of KCl while in the ED which puts her daily total thus far at 50meq. Her TSH was WNL and her Lyme testing was negative. EKG w/ normal sinus rhythm w/ no signs of ischemia. #Gitelman syndrome | Hypokalemia Mag stable at 2.2 on admission However K was low for her at 3.4 She relays history of pleurisy and cardiac like pain whenever her potassium drops less than 4 She also notes that her goal in the past has been told to be around 4.5 Home regimen: 20meq KCl BID + Aldactone 25mg at noon daily She self regulate her potassium levels, and adds in PRN 20meq KCl whenever diarrhea or sweating occurs Total of K 90meq given in the hospital on admission Potassium trend: 3.4 -> 4.1 -> 3.7 Patient reports prior 48-hour urine study which revealed potassium wasting Normal regimen: 20meq KCl BID + Aldactone 25 mg p.o. daily noon Changes to regimen on discharge: recommend patient take 40 mEq QAM and 20mEq QPM on discharge Will plan to reestablish with nephrology as an outpatient Recommend follow-up BMP/magnesium to assess in the next 2 to 3 days to reassess #Chest pain (resolved) Likely secondary to hypokalemia as patient has h/o Gitelman syndrome EKG w/o signs of ischemia Troponin & D-Dimer both negative Lyme testing negative TSH WNL Echocardiogram without acute abnormalities; no acute changes from echo in 2019 Touched base with telemetry monitoring; no events or cardiac arrhythmias overnight; NSR 70-80bpm #Polydipsia Suspected due to renal wasting However, patient does have a family history of diabetes; per patient request will check A1c prior to discharge #Allergic rhinitis - montelukast #GERD - Pepcid PRN #Osteopenia - Vitamin D supplement Day of discharge 12/31: VSS Mrs. Gonsales reports she is feeling "a lot" better today when compared to yesterday. While she did have pain radiating across both her shoulder blades this morning, she is asymptomatic at this time. She reports this is very common whenever she drops her potassium less than 4. She develops PVCs and cardiac symptoms. She also describes it as a "pleurisy" feeling, and characterizes it as muscular pain that is "steady" and worse with deep breaths. While abnormal, this is common whenever she drops her sodium levels, and she has been told to aim for a K of 4.5. However she is concerned that her potassium can drop fairly quickly due to sweating or diarrhea. No recent sick contacts. No change in eating habits. No recent injuries to the chest wall, falls, or muscle strains. No prior history of DVT/PE, but she does have family history of PE. Patient does have a history of asthma, but reports it is largely seasonal and she does have an albuterol inhaler PRN. Her mother does have eosinophilic asthma, but she has never had an elevated eosinophil count in the past. Additionally, she also endorses polydipsia. She reports she pees constantly, and this is abnormal. No prior history of diabetes, and she does not currently think she has diabetes, and is requesting that we check her A1c at this time. Patient did have a prior 48-hour urine study back in 2005; this was evaluated by [facility], and did reveal potassium wasting. She has followed with Dr. Young (nephrology) in the past and, and is requesting to follow with them again upon discharge. In regard to how often she checks her potassium as an outpatient, she reports "not frequently enough". She believes her last potassium check was in May 2024. Normally, she takes potassium supplementation 20 mEq BID, as well as Aldactone 25 mg p.o. at noon. She also n eeds to "self dose" based on how she is feeling, and her current levels of diarrhea or sweating. She does express some concerns that she might go too far in the opposite direction and become hyperkalemic. 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 Overall, she does feel better today, and is amenable to going home at this time so long as she has a game plan for better prevention upon discharge. ROS: Patient endorses polydipsia, and constipation at this time. Patient denies fever, chills, night sweats, chest pain, bilateral shoulder blade pain (resolved), pleuritic CP, cough, abdominal pain, N/V/D, or changes in urinary or bowel habits. Disposition: Discharge home Notes For Next Care Provider Patient hospitalized with chest pain and shortness of breath. Negative cardiac workup. Negative troponin. No ischemic changes on EKG. Echo without acute changes from 2019. D-dimer negative. Patient reported that she always has chest pain and shortness of breath whenever her potassium levels drop in the setting of Gitelman syndrome. K 3.4 on arrival. K 4.0 at time of discharge. Her symptoms improved when her potassium returned to normal levels. While it is abnormal that a potassium of 3.4 would cause symptoms, it is highly recommended that she maintain a potassium level greater than 4 upon discharge. We also recommend that she get reestablished with nephrology (Dr. Young) for better potassium monitoring and adjustments to her current regimen. On arrival, her current regimen was potassium chloride 20 mEq p.o. BID + Aldactone 25 mg p.o. daily at noon. Patient also takes additional potassium as needed for diarrhea or sweating. Upon discharge, we recommend she increase her morning dose of potassium from 20 -> 40mEq BID. Per review of patient's potassium over the past several years, she has never been higher than 4.6, even taking 20 mEq PRN for diarrhea or sweating. Do not recommend titrating spironolactone, as patient has developed orthostasis at higher doses. Patient will require a repeat BMP within the next week to assess for changes in potassium level. Admission HPI Per Admitting Provider This is a 49 year old female with past medical history of Gitelman syndrome, allergic rhinitis, GERD who presented to the ED on 12/30/2024 for chest pain and shortness of breath. Spencer was seen & examined this afternoon. She states that she received the Shingrix vaccination on 12/26. Following this she experienced muscle aches, abdominal pain, and chest pain. She reports the chest pain has persisted over th e last several days and she also experienced shortness of breath secondary to chest pain. She states she has had chest pain in the past when her K is low. She states that her goal is to have her K above 4. She states she took 20meq KCl this morning. She states that she typically takes 20meq BID and will take an additional dose if she experiences diarrhea. She also uses aldactone 25mg daily as well but does note she missed a dose this week. She states that she previously followed with Dr. Young but has not seen him in some time. States she does feel improvement after an additional dose of KCl but is still having chest pain. She also reports muscle spasms over the last few days as well. Her PCP had recommended she report to the ED. She denies N/V or urinary symptoms. While in the ED, her CXR was negative. Troponin & D-dimer both negative. Mag stable at 2.2. CBC stable. K low at 3.4. She received additional 20meq oral and 10meq IV of KCl while in the ED which puts her daily total thus far at 50meq. Her TSH was WNL and her Lyme testing was negative. EKG w/ normal sinus rhythm w/ no signs of ischemia. Admission Exam Per Admitting Provider General: NAD, VS: BP 124/77, P82, R16, T36.8C Resp: normal respiratory effort, lungs clear to auscultation CV: RRR, no murmur Abd: normal bowel sounds, non tender, soft Extremities: Moves all extremities, no edema Neuro: A&O x3 Skin: intact, no lesions noted Discharge Exam General: no acute distress; pleasant affect; non-toxic appearing; cooperative; SpO2 100% on RA HEENT: normocephalic, atraumatic; PERRLA; vision and hearing intact Neck: supple; trachea midline Skin: warm, dry without signs of tenting; no cyanosis; no rashes, bruising, lesions, or erythema noted CV: chest wall NTP; RRR; S1/S2 normal; no murmurs/rubs/gallops; pulses intact and symmetric at radial, DP, and PT Lungs: no acute respiratory distress; symmetrical chest wall expansion; clear breath sounds across all lung douglas w/o adventitious sounds; no wheezing ABD: Soft, NTP; BS present; no rebound/guarding; no distention; no rashes or bruising appreciated in the abdomen or flanks bilaterally MSK: no tics or fasciculations; no edema noted in the LEs b/l, nonerythematous Neuro: A&Ox3; normal mood and affect; fluent speech; sensation intact and symmetric in the LEs b/l VSS Discharge Plan Discharge Items Patient Disposition: Home - Self-Care Reason For Visit: CHEST PAIN, SHORTNESS OF BREATH Discharge Diagnosis: Musculoskeletal pain from Gitelman syndrome, hypokalemia Condition on Discharge: Good Activity: Resume your previous activity Non-emergency contact: Primary Care Provider and Sampler And Test Preparer Call non-emergency contact if: you have any medication questions, your symptoms worsen and your pain is not controlled Follow-up/Referrals: Ruslan Rubi MD [Primary Care Provider] - Diet: Regular Addtl Attending Provider Instructions: You are hospitalized at [facility] from 12/30 for 12/31 for pleuritic chest pain and musculoskeletal pain in setting of hypokalemia. You reported that this was similar to prior episodes of hypokalemia, where your potassium dropped below 4.0. This is presumed to be due to your diagnoses of Gitelman syndrome, although you mentioned in the hospital that could Bartter syndrome. A workup was conducted to rule out cardiac/pulmonary etiology: An echocardiogram was obtained which did not reveal any acute changes in cardiac function when compared to the prior study done on 04/19/2018. Additionally, your troponin was within normal limits (this is an enzyme that becomes elevated in times of "heart stress"), and your EKG did not show any ischemic changes to suggest that your pain was cardiac related. A blood test called a D-dimer was obtained to assess for blood clots; however, this was negative, meaning a blood clot as the cause of your pain was extremely unlikely. Given your history, we suspect that this was caused to low potassium levels. Upon discharge, we we recommend the following changes to your current regimen: Take potassium chloride 40 mEq in the mornings, and 20 mEq in the evenings. At time of discharge, your potassium level is 4.0, which is within a normal range (normal reference range 3.5 - 5.1). We do recommend that you attempt to keep your potassium around 4.0 or greater. Please plan to follow-up with your PCP in the next 7 to 10 days for a transitional care appointment. Prior to this appointment, we recommend that you have repeat blood work drawn to assess your potassium levels. Our case management team is also working to set you up with a nephrology appointment to [facility]. If you develop any new or worsening symptoms, such as fever, chills, chest pain, pain with deep breaths, shortness of breath on exertion, burning with urination, or blood in the urine, please return to the emergency department immediately. It was a pleasure take care of you. Please reach out with any questions or concerns. Sincerely, The Hospital medicine team at [facility] Pending Studies at Discharge: No Stand-Alone Forms: [facility] Medications and DC Order Prescriptions: New potassium chloride 10 mEq tablet extended release 40 meq PO QAM 30 Days Qty: 120 0RF Rx Instructions: Take 4 tablets by mouth in the morning (40mEq) potassium chloride 10 mEq tablet extended release 20 meq PO QPM 30 Days Qty: 60 0RF Rx Instructions: Take 2 tablets at night (20 mEq) Continued Allergy Relief (fluticasone) 50 mcg/actuation spray,suspension 1 - 2 spray INTNAS UD PRN (Reason: Allergy Symptoms) Qty: 15.8 3RF Rx Instructions: administer into each nostril albuterol sulfate 90 mcg/actuation HFA aerosol inhaler 2 puff inhalation .COMPLEX PRN (Reason: shortness of breath or wheezing) Qty: 8.5 5RF Rx Instructions: 2 puffs inhalation every 4-6 hours as needed. PRN; spironolactone 25 mg tablet 25 mg PO QDL Qty: 90 1RF montelukast 10 mg tablet 10 mg PO QAM Qty: 90 1RF Rx Instructions: TAKE 1 TABLET BY MOUTH EVERY DAY epinephrine [EpiPen 2-Garrick] 0.3 mg/0.3 mL auto-injector 0.3 mg IM ONCE PRN (Reason: anaphylaxis) Qty: 2 0RF Rx Instructions: for 2 doses famotidine 40 mg tablet 40 mg PO DAILY PRN (Reason: GERD) Qty: 30 1RF dorzolamide-timolol (PF) 2-0.5 % dropperette 1 drp OPB BID cholecalciferol (vitamin D3) 50 mcg (2,000 unit) capsule 50 mcg PO QAM Rx Instructions: with heaviest meal of the day triamcinolone acetonide 0.1 % cream 1 applic topical BID PRN (Reason: flare up) Discontinued potassium chloride [Klor-Con 10] 10 mEq tablet extended release 20 meq PO TID Qty: 180 5RF Discharge Orders: Discharge Order (Routine); Ordered 12/31/24 Ordered By: Jaspal Martin Admission Data Admit Date/Time: 12/30/24 14:07 Attending Provider: Dima Young Admit Provider: Vito Townsend Primary Care Provider: Ruslan Rubi V. Other Providers: Vito Townsend Hospital Stay Data Consultations 12/30/24 13:44 ED Decision to Admit Stat Discharge Instructions Given to Patient (Per Discharging Provider) You are hospitalized at [facility] from 12/30 for 12/31 for pleuritic chest pain and musculoskeletal pain in setting of hypokalemia. You reported that this was similar to prior episodes of hypokalemia, where your potassium dropped below 4.0. This is presumed to be due to your diagnoses of Gitelman syndrome, although you mentioned in the hospital that could Bartter syndrome. A workup was conducted to rule out cardiac/pulmonary etiology: An echocardiogram was obtained which did not reveal any acute changes in cardiac function when compared to the prior study done on 04/19/2018. Additionally, your troponin was within normal limits (this is an enzyme that becomes elevated in times of "heart stress"), and your EKG did not show any ischemic changes to suggest that your pain was cardiac related. A blood test called a D-dimer was obtained to assess for blood clots; however, this was negative, meaning a blood clot as the cause of your pain was extremely unlikely. Given your history, we suspect that this was caused to low potassium levels. Upon discharge, we we recommend the following changes to your current regimen: Take potassium chloride 40 mEq in the mornings, and 20 mEq in the evenings. At time of discharge, your potassium level is 4.0, which is within a normal range (normal reference range 3.5 - 5.1). We do recommend that you attempt to keep your potassium around 4.0 or greater. Please plan to follow-up with your PCP in the next 7 to 10 days for a transitional care appointment. Prior to this appointment, we recommend that you have repeat blood work drawn to assess your potassium levels. Our case management team is also working to set you up with a nephrology appointment to reestablish care. If you develop any new or worsening symptoms, such as fever, chills, chest pain, pain with deep breaths, shortness of breath on exertion, burning with urination, or blood in the urine, please return to the emergency department immediately. It was a pleasure take care of you. Please reach out with any questions or concerns. Sincerely, The Hospital medicine team at [facility] Total Time Total Time Spent Total Time Spent (In Minutes): 45 Coding [place] [address] INP/OBS DISCH >30 MIN Patient Type Established History Comprehensive Exam Comprehensive Medical Decision Making Moderate Complexity Diagnoses Chest pain R07.89; R07.8 Chest pain type: other chest pain Gitelman syndrome E83.42; E87.6 Hypokalemia E87.6
[2024-12-31] MEDS: SPIRONOLACTONE 25 MG TAB PO SCH (11:27)
[2024-12-31 14:45] VITALS: PULSE 72
[2024-12-31 15:44] VITALS: BP 113/76; TEMP 97.5; O2SAT 96
[2024-12-31 20:25] LABS: Hemoglobin A1C 4.9 % (4.5-5.6)
--- NOTE | 2025-01-01 06:16 | Electrocardiogram Report ---
Test Reason : Blood Pressure : */* mmHG Vent. Rate : 90 BPM Atrial Rate : 90 BPM P-R Int : 136 ms QRS Dur : 86 ms QT Int : 352 ms P-R-T Axes : 66 69 36 degrees QTcB Int : 430 ms Normal sinus rhythm Nonspecific ST abnormality When compared with ECG of 30-Dec-2024 11:11, No significant change was found Confirmed by Collin Toscano ([id number]) on 01/01/2025 6:15:49 AM Referred By: REFERRED SELF Confirmed By: Collin Toscano
== END 2024-12-31 16:42 | disposition home or self-care (01) ==
LOC: SUATTDRO → ED 11:02 → 2N 11:02 → SUATTDRO 14:07 → 2N 15:49